=== PATIENT | female | born 1945 | race Caucasian/White ===

== ENCOUNTER 2018-05-05 22:10 | Emergency (ER) | payer MEDICARE, OTHER ==
--- NOTE | 2018-05-05 22:23 | EDM.PDOC ---
ED HPI GENERAL MEDICAL PROBLEM - General Chief Complaint: Respiratory Problem Stated Complaint: SHORT OF BREATH Time Seen by Provider: 05/05/18 22:20 - History of Present Illness INITIAL COMMENTS - FREE TEXT/NARRATIVE: HISTORY AND PHYSICAL: History of present illness: Patient is 72-year-old female with history of pulmonary cancer for which she had a left lower lobe lobectomy in October of this year followed by chemotherapy she had her port removed recently and was told that PET scan and all other diagnostics demonstrate no evidence of cancer. She presents today with a cough that she's had for 1 week and increasing shortness of breath she denies fever chills nausea vomiting or other complaints Review of systems: As per history of present illness and below otherwise all systems reviewed and negative. Past medical history: As per history of present illness and as reviewed below otherwise noncontributory. Surgical history: As per history of present illness and as reviewed below otherwise noncontributory. Social history: No reported history of drug or alcohol abuse. Family history: As per history of present illness and as reviewed below otherwise noncontributory. Physical exam: HEENT: Atraumatic, normocephalic, pupils reactive, negative for conjunctival pallor or scleral icterus, mucous membranes moist, throat clear, neck supple, nontender, trachea midline. Lungs: Slightly coarse diminished left base, breath sounds equal bilaterally, chest nontender. Heart: S1S2, regular, negative for clicks, rubs, or JVD. Abdomen: Soft, nondistended, nontender. Negative for masses or hepatosplenomegaly. Negative for costovertebral tenderness. Pelvis: Stable nontender. Genitourinary: Deferred. Rectal: Deferred. Extremities: Atraumatic, negative for cords or calf pain. Neurovascular unremarkable. Neuro: Awake, alert, oriented. Cranial nerves II through XII unremarkable. Cerebellum unremarkable. Motor and sensory unremarkable throughout. Exam nonfocal. Diagnostics: CBC CMP PT/INR ABG chest x-ray EKG troponin Therapeutics: IV O2 monitor albuterol ipratropium nebulizer Impression: #1 history of pulmonary cancer status post lobectomy #2 dyspnea Definitive disposition and diagnosis as appropriate pending reevaluation and review of above. - Related Data Allergies Allergy/AdvReac Type Severity Reaction Status Date / Time No Known Allergies Allergy Verified 05/05/18 22:34 Home Meds: Home Meds Aspirin 81 mg PO ONETIME 01/24/16 [History] ClonazePAM [KlonoPIN] 0.5 mg PO QID PRN 01/24/16 [History] Insulin Detemir [Levemir] 10 unit SQ DAILY 01/24/16 [History] Metoprolol Succinate [Toprol XL 100mg] 100 mg PO DAILY 01/24/16 [History] Omeprazole 20 mg PO DAILY 01/24/16 [History] Sertraline HCl [Zoloft] 100 mg PO DAILY 01/24/16 [History] Dulaglutide [Trulicity] 1.5 mg SQ ASDIRECTED 05/05/18 [History] Insulin Aspart [NovoLOG] 0 units SQ QID 05/05/18 [History] Zolpidem Tartrate [Ambien] 5 mg PO DAILY PRN 05/05/18 [History] Past Medical History HEENT History: Reports: Sinusitis Cardiovascular History: Reports: Hypertension Respiratory History: Reports: None, Other (See Below) Other Respiratory History: pneumonia Gastrointestinal History: Reports: GERD Genitourinary History: Reports: None F[employer]WORK[employer] GENERAL History: Reports: Neurological History: Reports: None Psychiatric History: Reports: None Endocrine/Metabolic History: Reports: Diabetes, Type II Hematologic History: Reports: None Immunologic History: Reports: None Oncologic (Cancer) History: Reports: Squamous Cell Carcinoma Dermatologic History: Reports: None - Infectious Disease History Infectious Disease History: Reports: Chicken Pox, Measles, Mumps - Past Surgical History Female Surgical History: Reports: D&C, Hysterectomy, Salpingo-Oophorectomy Musculoskeletal Surgical History: Reports: Arthroscopic Knee, Other (See Below) Social & Family History - Family History Family Medical History: Noncontributory ED ROS GENERAL - Review of Systems Review Of Systems: ROS reveals no pertinent complaints other than HPI. ED EXAM, GENERAL - Physical Exam Exam: See Below (See dictation) Course - Vital Signs Text/Narrative:: Patient is improved and has had an unremarkable emergency department course she continues with a mild headache we discussed admission and further diagnostic testing at this time patient declined she does request home nebulizer for albuterol which was suggested by her private doctor but is yet to be secured. Last Recorded V/S: Last Vital Signs Temp 37.4 C 05/05/18 22:13 Pulse 108 H 05/05/18 23:30 Resp 20 05/05/18 23:30 BP 104/64 05/05/18 23:30 Pulse Ox 94 L 05/05/18 23:30 - Orders/Labs/Meds Orders: Active Orders 24 hr Category Date Time Status EKG Documentation Completion [RC] STAT Care 05/05/18 22:21 Active RT Aerosol Therapy [RC] ASDIRECTED Care 05/05/18 22:24 Active Chest 1V Frontal [CR] Stat Exams 05/05/18 22:21 Taken Labs: Laboratory Tests 05/05/18 05/05/18 05/05/18 Range/Units 22:20 22:20 22:20 WBC 6.23 (4.0-11.0) K/uL RBC 3.73 L (4.30-5.90) M/uL Hgb 13.0 (12.0-16.0) g/dL Hct 36.7 (36.0-46.0) % MCV 98.4 H (80.0-98.0) fL MCH 34.9 H (27.0-32.0) pg MCHC 35.4 (31.0-37.0) g/dL RDW Std Deviation 42.9 (28.0-62.0) fl RDW Coeff of Onofre 12 (11.0-15.0) % Plt Count 176 (150-400) K/uL MPV 9.30 (7.40-12.00) fL Neut % (Auto) 72.9 (48.0-80.0) % Lymph % (Auto) 14.9 L (16.0-40.0) % Alfalfa % (Auto) 10.8 (0.0-15.0) % Eos % (Auto) 1.1 (0.0-7.0) % Baso % (Auto) 0.3 (0.0-1.5) % Neut # (Auto) 4.5 (1.4-5.7) K/uL Lymph # (Auto) 0.9 (0.6-2.4) K/uL Alfalfa # (Auto) 0.7 (0.0-0.8) K/uL Eos # (Auto) 0.1 (0.0-0.7) K/uL Baso # (Auto) 0.0 (0.0-0.1) K/uL Nucleated RBC % 0.0 /100WBC Nucleated RBCs # 0 K/uL INR ABG pH (7.35-7.45) ABG pCO2 (35-45) mmHG ABG pO2 (75-100) mmHG ABG HCO3 (22-26) mEq/L ABG Total CO2 ABG Base Excess (-2.0-2.0) Sodium 131 L (136-145) mmol/L Potassium 3.8 (3.5-5.1) mmol/L Chloride 96 L (98-107) mmol/L Carbon Dioxide 22.0 (21.0-32.0) mmol/L BUN 12 (7.0-18.0) mg/dL Creatinine 1.2 H (0.6-1.0) mg/dL Est Cr Clr Drug Dosing 38.69 mL/min Estimated GFR (MDRD) 44.3 ml/min Glucose 387 H (74-106) mg/dL Calcium 9.3 (8.5-10.1) mg/dL Total Bilirubin 0.3 (0.2-1.0) mg/dL AST 25 (15-37) IU/L ALT 29 (14-63) IU/L Alkaline Phosphatase 89 (46-116) U/L Troponin I < 0.050 (0.000-0.056) ng/mL B-Natriuretic Peptide 17 (<100) PG/ML Total Protein 7.6 (6.4-8.2) g/dL Albumin 3.1 L (3.4-5.0) g/dL Globulin 4.5 H (2.0-3.5) g/dL Albumin/Globulin Ratio 0.7 L (1.3-2.8) 05/05/18 05/05/18 Range/Units 22:20 23:05 WBC (4.0-11.0) K/uL RBC (4.30-5.90) M/uL Hgb (12.0-16.0) g/dL Hct (36.0-46.0) % MCV (80.0-98.0) fL MCH (27.0-32.0) pg MCHC (31.0-37.0) g/dL RDW Std Deviation (28.0-62.0) fl RDW Coeff of Onofre (11.0-15.0) % Plt Count (150-400) K/uL MPV (7.40-12.00) fL Neut % (Auto) (48.0-80.0) % Lymph % (Auto) (16.0-40.0) % Alfalfa % (Auto) (0.0-15.0) % Eos % (Auto) (0.0-7.0) % Baso % (Auto) (0.0-1.5) % Neut # (Auto) (1.4-5.7) K/uL Lymph # (Auto) (0.6-2.4) K/uL Alfalfa # (Auto) (0.0-0.8) K/uL Eos # (Auto) (0.0-0.7) K/uL Baso # (Auto) (0.0-0.1) K/uL Nucleated RBC % /100WBC Nucleated RBCs # K/uL INR 0.92 ABG pH 7.481 H (7.35-7.45) ABG pCO2 27 L (35-45) mmHG ABG pO2 69 L (75-100) mmHG ABG HCO3 21 L (22-26) mEq/L ABG Total CO2 18.5 ABG Base Excess -1.9 (-2.0-2.0) Sodium (136-145) mmol/L Potassium (3.5-5.1) mmol/L Chloride (98-107) mmol/L Carbon Dioxide (21.0-32.0) mmol/L BUN (7.0-18.0) mg/dL Creatinine (0.6-1.0) mg/dL Est Cr Clr Drug Dosing mL/min Estimated GFR (MDRD) ml/min Glucose (74-106) mg/dL Calcium (8.5-10.1) mg/dL Total Bilirubin (0.2-1.0) mg/dL AST (15-37) IU/L ALT (14-63) IU/L Alkaline Phosphatase (46-116) U/L Troponin I (0.000-0.056) ng/mL B-Natriuretic Peptide (<100) PG/ML Total Protein (6.4-8.2) g/dL Albumin (3.4-5.0) g/dL Globulin (2.0-3.5) g/dL Albumin/Globulin Ratio (1.3-2.8) Meds: Medications Discontinued Medications Generic Name Dose Route Start Last Admin Trade Name To PRN Reason Stop Dose Admin Acetaminophen 1,000 mg 05/05/18 23:18 05/05/18 23:25 Tylenol Extra Strength PO 05/05/18 23:19 1,000 mg ONETIME ONE Administration Hydrocodone Bitart/Acetaminophen 1 tab 05/05/18 23:34 05/05/18 23:43 [place] 325-5 Mg PO 05/05/18 23:35 1 tab ONETIME ONE Administration Albuterol/Ipratropium 3 ml 05/05/18 22:24 05/05/18 22:41 Duoneb 3.0-0.5 Mg/3 Ml NEB 05/05/18 22:25 3 ml ONETIME ONE Administration Insulin Human Regular 15 unit 05/06/18 23:55 Novolin R SUBCUT 05/05/18 23:59 ONETIME ONE Protocol Insulin Human Regular 15 unit 05/06/18 00:00 05/06/18 00:06 Novolin R SUBCUT 05/06/18 00:01 15 units ONETIME ONE Administration Protocol Ketorolac Tromethamine 30 mg 05/05/18 22:26 05/05/18 22:41 Toradol IVPUSH 05/05/18 22:27 30 mg ONETIME ONE Administration Departure - Departure Time of Disposition: 00:50 Disposition: Home, Self-Care 01 Condition: Good Clinical Impression: Dyspnea - Discharge Information Referrals: PCP,None [Primary Care Provider] - Forms: ED Department Discharge Additional Instructions: The following information is given to patients seen in the emergency department who are being discharged to home. This information is to outline your options for follow-up care. We provide all patients seen in our emergency department with a follow-up referral. The need for follow-up, as well as the timing and circumstances, are variable depending upon the specifics of your emergency department visit. If you don't have a primary care physician on staff, we will provide you with a referral. We always advise you to contact your personal physician following an emergency department visit to inform them of the circumstance of the visit and for follow-up with them and/or the need for any referrals to a consulting specialist. The emergency department will also refer you to a specialist when appropriate. This referral assures that you have the opportunity for followup care with a specialist. All of these measure are taken in an effort to provide you with optimal care, which includes your followup. Under all circumstances we always encourage you to contact your private physician who remains a resource for coordinating your care. When calling for followup care, please make the office aware that this follow-up is from your recent emergency room visit. If for any reason you are refused follow-up, please contact the [facility] emergency department at and asked to speak to the emergency department charge nurse. Albuterol as prescribed keep scheduled appointment tomorrow return as needed as discussed[] - My Orders Last 24 Hours: My Active Orders 05/05/18 22:21 EKG Documentation Completion [RC] STAT Chest 1V Frontal [CR] Stat 05/05/18 22:24 RT Aerosol Therapy [RC] ASDIRECTED - Assessment/Plan Last 24 Hours: My Active Orders 05/05/18 22:21 EKG Documentation Completion [RC] STAT Chest 1V Frontal [CR] Stat 05/05/18 22:24 RT Aerosol Therapy [RC] ASDIRECTED
[2018-05-05] MEDS ORDERED: Albuterol/Ipratropium 3.0-0.5 MG/3 ML Neb Soln NEB ONE (22:24)
[2018-05-05] MEDS ORDERED: Ketorolac 30 MG/ML SDV IVPUSH ONE (22:26)
[2018-05-05 22:52] LABS: CHLORIDE,CL 96 mmol/L (98-107); SODIUM,NA 131 mmol/L (136-145)
[2018-05-05] MEDS ORDERED: Acetaminophen 500 MG Tab PO ONE (23:18)
[2018-05-05] MEDS ORDERED: Acetaminophen/HYDROcodone 325-5 MG Tab PO ONE (23:34)
[2018-05-06 02:04] VITALS: BP 109/58
--- NOTE | 2018-05-06 13:14 | CR ---
EXAM DATE: 05/05/18 PATIENT'S AGE: 72 Patient: BIN VALDEZ Facility: [place], [place] Site . Site : [id number] Study: XRay Chest [id number]/10/2018 11:20:11 PM Ordering Physician: Jennifer Estrada Final Report: INDICATION: Shortness of breath TECHNIQUE: Chest radiograph 1 view COMPARISON: None FINDINGS: Moderate degradation of image quality noted due to body habitus. Mediastinum: The mediastinum is normal in appearance. Consolidation seen in the left lung base, obscuring the left cardiac border. Lungs: Mild perihilar edema is noted. No sign of pleural effusion seen. No pneumothorax is identified. Bones and soft tissue: Unremarkable for age. IMPRESSIONS: 1. Consolidation seen in the left lung base, obscuring the left cardiac border. Findings are suspicious for pneumonia or atelectasis. 2. Mild perihilar edema is noted. Dictated by Darrell Garcia MD @ 05/05/2018 11:23:33 PM Dictated by: Darrell Garcia MD @ 05/05/2018 23:23:39 (Electronic Signature) Report Signed by Proxy. TAYLA
[2018-05-06] MEDS ORDERED: Insulin Regular, Human 100 Units/ML 10 ML Vial SUBCUT ONE ×2 (23:55)
== END 2018-05-06 01:50 | disposition home or self-care (01) ==
LOC: MW.ED 22:10
DX: R06.00 Dyspnea, unspecified (principal); E11.9 Type 2 diabetes mellitus without complications; I10 Essential (primary) hypertension; K21.9 Gastro-esophageal reflux disease without esophagitis; Z85.118 Personal history of other malignant neoplasm of bronchus and lung; Z79.82 Long term (current) use of aspirin; Z79.4 Long term (current) use of insulin; Z79.899 Other long term (current) drug therapy
CPT/HCPCS: 36415; 36600; 71045; 80053; 82803; 83880; 84484; 85025; 85610; 93005; 94640; 99285; A9270; J1885; J1815-GY

== ENCOUNTER 2018-05-08 13:44 | Inpatient (IN) | payer MEDICARE, OTHER ==
[2018-05-08] MEDS ORDERED: Ketorolac 30 MG/ML SDV IVPUSH ONE (13:52)
--- NOTE | 2018-05-08 13:56 | EDM.PDOC ---
ED HPI GENERAL MEDICAL PROBLEM - General Chief Complaint: Back Pain or Injury Stated Complaint: BACK PAIN Time Seen by Provider: 05/08/18 13:48 Source of Information: Reports: Patient History Limitations: Reports: No Limitations - History of Present Illness INITIAL COMMENTS - FREE TEXT/NARRATIVE: HISTORY AND PHYSICAL: History of present illness: Patient is a 72-year-old female who presents to the emergency room with complaints of lumbar back pain after falling. She states she was sitting on the toilet when she stood up to wipe she felt herself falling backwards and hit her back on the toilet. She does remember eating her head but states "it was all in slow motion". Currently complains of lumbar back pain bilaterally without sciatica but describes it as a "muscle spasm". She denies any fever, chills, chest pain, shortness of breath or cough. Denies any abdominal pain, nausea, vomiting, diarrhea or constipation. Denies any dizziness, headache or change in vision. Review of systems: As per history of present illness and below otherwise all systems reviewed and negative. Past medical history: As per history of present illness and as reviewed below otherwise noncontributory. Surgical history: As per history of present illness and as reviewed below otherwise noncontributory. Social history: No reported history of drug or alcohol abuse. Family history: As per history of present illness and as reviewed below otherwise noncontributory. Physical exam: General: Developed and well-nourished 72-year-old female. Alert and oriented. Nontoxic appearing and in no acute distress. HEENT: Nontender to palpation, normocephalic, pupils equal and reactive bilaterally, negative for conjunctival pallor or scleral icterus, mucous membranes moist, throat clear, neck supple, nontender, trachea midline. No drooling or trismus noted. No meningeal signs Lungs: Clear to auscultation, breath sounds equal bilaterally, chest nontender. Heart: S1S2, regular rate and rhythm without overt murmur Abdomen: Soft, nondistended, nontender. Negative for masses or hepatosplenomegaly. Negative for costovertebral tenderness. Pelvis: Stable nontender. Genitourinary: Deferred. Rectal: Deferred. C-spine/Back: No pinpoint vertebral tenderness upon palpation. No crepitus, step -offs or obvious deformities. She denies any numbness or tingling to her distal extremities. No urinary or fecal incontinence. Skin: Intact, warm, dry. No lesions or rashes noted. Extremities: Atraumatic, negative for cords or calf pain. Neurovascular unremarkable. Neuro: Awake, alert, oriented. Cranial nerves II through XII unremarkable. Cerebellum unremarkable. Motor and sensory unremarkable throughout. Exam nonfocal. Notes: X-ray of the chest shows a mild left basilar infiltrate, it is noted that this has improved from previous x-ray on 05/05/2018. Degenerative changes are noted to the cervical spine without any acute findings Head CT shows no acute intracranial findings with mild to moderate small vessel ischemic changes. Lumbar spine x-ray shows no definitive acute abnormalities, generalized osteopenia and mild changes Patient was made aware of her labs and imaging findings. Patient is requesting a DuoNeb at this time as she states she normally has one in the morning and afternoon. She states that she has minimal to no pain relief with Toradol and Norflex. She states that she has had Newell in the past her chemotherapy treatments. She is requesting that I give her a tablet Newell at this time as she would like to ambulate in the room to see how she feels. I did offer her admission at this time. She is hesitant as she states that she may want to go home if her in has improved. I did inform her that the admission would be due to her syncope. She is aware. Patient was assisted to get up to ambulate in the room. She states her back pain is unresolved and she feels she is unable to take care of herself at home. She would like to stay overnight. I did consult Dr. Richardson on this patient and he is aware. He is agreeable to keeping this patient with telemetry. Diagnostics: CBC, CMP, troponin, EKG, one view chest, head CT, CT cervical spine, x-ray lumbar spine Therapeutics: IV fluid, Toradol, Zithromax, Morphine, zofran Impression: Syncope Back pain Left basilar infiltrate Plan: Observation admission Definitive disposition and diagnosis as appropriate pending reevaluation and review of above. Onset: Today Duration: Minutes: Location: Reports: Back Lower Back Pain Score (Numeric/FACES): 9 - Related Data Allergies Allergy/AdvReac Type Severity Reaction Status Date / Time No Known Allergies Allergy Verified 05/08/18 13:50 Home Meds: Home Meds Aspirin 81 mg PO ONETIME 01/24/16 [History] ClonazePAM [KlonoPIN] 0.5 mg PO QID PRN 01/24/16 [History] Insulin Detemir [Levemir] 10 unit SQ DAILY 01/24/16 [History] Metoprolol Succinate [Toprol XL 100mg] 100 mg PO DAILY 01/24/16 [History] Omeprazole 20 mg PO DAILY 01/24/16 [History] Sertraline HCl [Zoloft] 100 mg PO DAILY 01/24/16 [History] Dulaglutide [Trulicity] 1.5 mg SQ ASDIRECTED 05/05/18 [History] Insulin Aspart [NovoLOG] 0 units SQ QID 05/05/18 [History] Zolpidem Tartrate [Ambien] 5 mg PO DAILY PRN 05/05/18 [History] Cyclobenzaprine [Flexeril] 10 mg PO TID PRN 7 Days #21 tab 05/08/18 [Rx] Past Medical History HEENT History: Reports: Sinusitis Cardiovascular History: Reports: Hypertension Respiratory History: Reports: None, Other (See Below) Other Respiratory History: pneumonia Gastrointestinal History: Reports: GERD Genitourinary History: Reports: None BIT WELDER History: Reports: Musculoskeletal History: Reports: None Neurological History: Reports: None Psychiatric History: Reports: None Endocrine/Metabolic History: Reports: Diabetes, Type II Hematologic History: Reports: None Immunologic History: Reports: None Oncologic (Cancer) History: Reports: Squamous Cell Carcinoma Dermatologic History: Reports: None - Infectious Disease History Infectious Disease History: Reports: Chicken Pox, Measles, Mumps - Past Surgical History Female Surgical History: Reports: D&C, Hysterectomy, Salpingo-Oophorectomy Musculoskeletal Surgical History: Reports: Arthroscopic Knee, Other (See Below) Social & Family History - Family History Family Medical History: Noncontributory - Caffeine Use Caffeine Use: Reports: Coffee ED ROS GENERAL - Review of Systems Review Of Systems: ROS reveals no pertinent complaints other than HPI. ED EXAM,LOWER BACK PAIN/INJURY - Physical Exam Exam: See Below (See dictation) Course - Vital Signs Last Recorded V/S: Last Vital Signs Temp 97.8 F 05/08/18 13:53 Pulse 89 05/08/18 13:53 Resp 14 05/08/18 13:53 BP 132/89 07/13/18 13:53 Pulse Ox 93 L 05/08/18 13:53 - Orders/Labs/Meds Orders: Active Orders 24 hr Category Date Time Status EKG Documentation Completion [RC] STAT Care 05/08/18 13:52 Active RT Aerosol Therapy [RC] ASDIRECTED Care 05/08/18 15:51 Active Sodium Chloride 0.9% [Normal Saline] 500 ml Med 05/08/18 14:00 Active IV STAT Medication Orders Sodium Chloride (Normal Saline) 500 mls @ 999 mls/hr IV STAT OLIVIA Last Admin: 05/08/18 14:09 Dose: 999 mls/hr Labs: Laboratory Tests 05/08/18 05/08/18 Range/Units 14:05 14:05 WBC 8.14 (4.0-11.0) K/uL RBC 3.66 L (4.30-5.90) M/uL Hgb 12.5 (12.0-16.0) g/dL Hct 35.6 L (36.0-46.0) % MCV 97.3 (80.0-98.0) fL MCH 34.2 H (27.0-32.0) pg MCHC 35.1 (31.0-37.0) g/dL RDW Std Deviation 43.1 (28.0-62.0) fl RDW Coeff of Onofre 12 (11.0-15.0) % Plt Count 217 (150-400) K/uL MPV 9.10 (7.40-12.00) fL Neut % (Auto) 79.8 (48.0-80.0) % Lymph % (Auto) 10.4 L (16.0-40.0) % [place] % (Auto) 8.2 (0.0-15.0) % Eos % (Auto) 1.4 (0.0-7.0) % Baso % (Auto) 0.2 (0.0-1.5) % Neut # (Auto) 6.5 H (1.4-5.7) K/uL Lymph # (Auto) 0.9 (0.6-2.4) K/uL [place] # (Auto) 0.7 (0.0-0.8) K/uL Eos # (Auto) 0.1 (0.0-0.7) K/uL Baso # (Auto) 0.0 (0.0-0.1) K/uL Nucleated RBC % 0.0 /100WBC Nucleated RBCs # 0 K/uL Sodium 132 L (136-145) mmol/L Potassium 4.1 (3.5-5.1) mmol/L Chloride 97 L (98-107) mmol/L Carbon Dioxide 24.5 (21.0-32.0) mmol/L BUN 17 (7.0-18.0) mg/dL Creatinine 1.1 H (0.6-1.0) mg/dL Est Cr Clr Drug Dosing 43.91 mL/min Estimated GFR (MDRD) 49.0 ml/min Glucose 289 H (74-106) mg/dL Calcium 10.0 (8.5-10.1) mg/dL Total Bilirubin 0.2 (0.2-1.0) mg/dL AST 42 H (15-37) IU/L ALT 37 (14-63) IU/L Alkaline Phosphatase 85 (46-116) U/L Troponin I < 0.050 (0.000-0.056) ng/mL Total Protein 7.7 (6.4-8.2) g/dL Albumin 3.0 L (3.4-5.0) g/dL Globulin 4.7 H (2.0-3.5) g/dL Albumin/Globulin Ratio 0.6 L (1.3-2.8) Meds: Medications Generic Name Dose Route Start Last Admin Trade Name Freq PRN Reason Stop Dose Admin Sodium Chloride 500 mls @ 999 mls/hr 05/08/18 14:00 05/08/18 14:09 Normal Saline IV 999 mls/hr STAT OLIVIA Administration Discontinued Medications Generic Name Dose Route Start Last Admin Trade Name Freq PRN Reason Stop Dose Admin Hydrocodone Bitart/Acetaminophen 1 tab 05/08/18 15:51 05/08/18 16:28 Newell 325-5 Mg PO 05/08/18 15:52 1 tab ONETIME ONE Administration Albuterol/Ipratropium 3 ml 05/08/18 15:51 05/08/18 16:15 Duoneb 3.0-0.5 Mg/3 Ml NEB 05/08/18 15:52 3 ml ONETIME ONE Administration Ketorolac Tromethamine 30 mg 05/08/18 13:52 05/08/18 14:10 Toradol IVPUSH 05/08/18 13:53 30 mg ONETIME ONE Administration Orphenadrine Citrate 60 mg 05/08/18 14:31 05/08/18 14:36 Norflex IM 05/08/18 14:32 60 mg NOW STA Administration Departure - Departure Time of Disposition: 17:21 Disposition: Refer to Observation Clinical Impression: Infiltrate of lung present on chest x-ray Syncope Qualifiers: Syncope type: unspecified Qualified Code(s): R55 - Syncope and collapse Back pain Qualifiers: Back pain location: thoracic back pain Chronicity: acute Back pain laterality: midline Qualified Code(s): M54.6 - Pain in thoracic spine - Discharge Information Prescriptions: Cyclobenzaprine [Flexeril] 10 mg PO TID PRN 7 Days #21 tab PRN Reason: Muscle Spasm Instructions: Syncope, [id number] Referrals: PCP,None [Primary Care Provider] - Forms: ED Department Discharge Additional Instructions: The following information is given to patients seen in the emergency department who are being discharged to home. This information is to outline your options for follow-up care. We provide all patients seen in our emergency department with a follow-up referral. The need for follow-up, as well as the timing and circumstances, are variable depending upon the specifics of your emergency department visit. If you don't have a primary care physician on staff, we will provide you with a referral. We always advise you to contact your personal physician following an emergency department visit to inform them of the circumstance of the visit and for follow-up with them and/or the need for any referrals to a consulting specialist. The emergency department will also refer you to a specialist when appropriate. This referral assures that you have the opportunity for follow-up care with a specialist. All of these measure are taken in an effort to provide you with optimal care, which includes your follow-up. Under all circumstances we always encourage you to contact your private physician who remains a resource for coordinating your care. When calling for follow-up care, please make the office aware that this follow-up is from your recent emergency room visit. If for any reason you are refused follow-up, please contact the [facility] Emergency Department at and asked to speak to the emergency department charge nurse. [facility] [address] [place] [phone] 1. Please take the medications as directed. As we discussed, the Newell will cause drowsiness so do not take this while driving, needing to be functioning outside of the house, or with other medications that cause drowsiness. You may use Ibuprofen for breakthrough pain. 2. Follow up with your primary care provider in the next 1-2 days. Return to the ED as needed and as discussed. - My Orders Last 24 Hours: My Active Orders 05/08/18 13:52 EKG Documentation Completion [RC] STAT 05/08/18 14:00 Sodium Chloride 0.9% [Normal Saline] 500 ml IV STAT 05/08/18 15:51 RT Aerosol Therapy [RC] ASDIRECTED - Assessment/Plan Last 24 Hours: My Active Orders 05/08/18 13:52 EKG Documentation Completion [RC] STAT 05/08/18 14:00 Sodium Chloride 0.9% [Normal Saline] 500 ml IV STAT 05/08/18 15:51 RT Aerosol Therapy [RC] ASDIRECTED
[2018-05-08] MEDS ORDERED: Sodium Chloride 0.9% 500 ML IV SCH (14:00)
[2018-05-08 14:33] LABS: CHLORIDE,CL 97 mmol/L (98-107); SODIUM,NA 132 mmol/L (136-145)
--- NOTE | 2018-05-08 15:04 | CT ---
EXAMINATION: Non contrast CT head. Coronal and sagittal reformats. HISTORY: Pain FINDINGS: No evidence of intra or extra axial hemorrhage, mass, midline shift, hydrocephalus or edema. Mild to moderate periventricular and subcortical white matter hypodensities are noted. No hypoattenuation changes in the major vascular territories to suggest acute infarct. No abnormal intracranial calcifications are detected. No evidence of substantial vascular calcificat ions. Paranasal sinuses and mastoid air cells are well aerated without substantial findings. The orbits an d globes are symmetric. Pituitary fossa appears unremarkable. Calvarium is intact. No evidence of skull fracture. IMPRESSION: 1. No acute intracranial findings. 2. [id number] small vessel ischemic changes.
--- NOTE | 2018-05-08 15:09 | CT ---
EXAMINATION: CT cervical spine HISTORY: Pain COMPARISON: None TECHNIQUE: Axial CT images obtained through the cervical spine without contrast. Coronal and sagittal reconstructions obtained. FINDINGS: The cervical spinal alignment is grossly unremarkable. Vertebral body heights appear maintained. Bone mineralization appears normal. Mild degenerative disc disease noted within the lower cervical spine. No fracture or acute osseous abnormality is noted. The prevertebral soft tissues appear normal. Scar ring is noted within the left lung apex. IMPRESSION: 1. Degenerative changes noted within the cervical spine without acute findings.
--- NOTE | 2018-05-08 15:43 | CR ---
EXAMINATION: Lumbar spine HISTORY: Pain COMPARISON: CT dated 01/24/2016 TECHNIQUE: AP and lateral views obtained FINDINGS: The lumbar spinal alignment appears normal. There is a moderate wedge deformity at L2, unch anged from the prior CT. There is moderate generalized osteopenia. No definitive fracture or acute os seous abnormality. Mild facet hypertrophy within the lower lumbar spine and small bowel osteophytes a re noted. Mild vascular calcifications. IMPRESSION: 1. No definitive acute osseous abnormality. 2. Generalized osteopenia. 3. Old wedge deformity of the L2 vertebral body. 4. Otherwise mild degenerative changes within the lumbar spine.
--- NOTE | 2018-05-08 15:44 | CR ---
EXAMINATION: Portable chest radiograph. HISTORY: Fall. FINDINGS: The trachea is midline. The heart is normal in size for technique. Mild left basilar infiltrate. No p leural effusion or pneumothorax. Otherwise minimal generalized interstitial prominence. IMPRESSION: Mild left basilar infiltrate, however improved in comparison to 05/05/2018.
[2018-05-08] MEDS ORDERED: Acetaminophen/HYDROcodone 325-5 MG Tab PO ONE (15:51)
[2018-05-08] MEDS ORDERED: Albuterol/Ipratropium 3.0-0.5 MG/3 ML Neb Soln NEB ONE (15:51)
[2018-05-08] MEDS ORDERED: Azithromycin 250 MG Tab PO ONE (17:22)
[2018-05-08] MEDS ORDERED: Morphine 2 MG/ML Syringe IVPUSH ONE (17:22)
[2018-05-08] MEDS ORDERED: Ondansetron 4 MG/2 ML SDV IVPUSH ONE (17:22)
[2018-05-08] MEDS ORDERED: Acetaminophen 325 MG Tab PO PRN (20:30)
--- NOTE | 2018-05-08 20:36 | PCM.HP ---
H&P History of Present Illness - General Date of Service: 05/08/18 Admit Problem/Dx: Admission Diagnosis/Problem Admission Diagnosis/Problem Syncope - History of Present Illness Initial Comments - Free Text/Narative: 72 yo female who presented following a syncopal event. Patient remembers getting up off the toilet at home but then does not rememeber falling. She woke up ten feet from the bathroom on the floor. She reported feeling like things were in slow motion before she passed out. When she woke up she reported back pain that was severe enough that she had difficulty standing. CT head, spine and x-ray lumbar chest were normal. Lower Back Pain Score (Numeric/FACES): 9 - Related Data Allergies/Adverse Reactions: Allergies Allergy/AdvReac Type Severity Reaction Status Date / Time No Known Allergies Allergy Verified 05/08/18 13:50 Home Medications: Home Meds Aspirin 81 mg PO ONETIME 01/24/16 [History] ClonazePAM [KlonoPIN] 0.5 mg PO QID PRN 01/24/16 [History] Insulin Detemir [Levemir] 10 unit SQ DAILY 01/24/16 [History] Metoprolol Succinate [Toprol XL 100mg] 100 mg PO DAILY 01/24/16 [History] Omeprazole 20 mg PO DAILY 01/24/16 [History] Sertraline HCl [Zoloft] 100 mg PO DAILY 01/24/16 [History] Dulaglutide [Trulicity] 1.5 mg SQ ASDIRECTED 05/05/18 [History] Zolpidem Tartrate [Ambien] 5 mg PO DAILY PRN 05/05/18 [History] Cyclobenzaprine [Flexeril] 10 mg PO TID PRN 7 Days #21 tab 05/08/18 [Rx] Insulin Regular, Human [NovoLIN R] 0 unit SUBCUT TID 05/09/18 [History] Past Medical History HEENT History: Reports: Sinusitis Cardiovascular History: Reports: Hypertension Respiratory History: Reports: None, Other (See Below) Other Respiratory History: pneumonia Gastrointestinal History: Reports: GERD Genitourinary History: Reports: None [employer]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: Musculoskeletal History: Reports: None Neurological History: Reports: None Psychiatric History: Reports: None Endocrine/Metabolic History: Reports: Diabetes, Type II Hematologic History: Reports: None Immunologic History: Reports: None Oncologic (Cancer) History: Reports: Squamous Cell Carcinoma Dermatologic History: Reports: None - Infectious Disease History Infectious Disease History: Reports: Chicken Pox, Measles, Mumps - Past Surgical History Female Surgical History: Reports: D&C, Hysterectomy, Salpingo-Oophorectomy Musculoskeletal Surgical History: Reports: Arthroscopic Knee, Other (See Below) Social & Family History - Family History Family Medical History: Noncontributory - Tobacco Use Smoking Status *Q: Former Smoker Used Tobacco, but Quit: Yes Month/Year Tobacco Last Used: 08/27/2017 - Caffeine Use Caffeine Use: Reports: Coffee - Recreational Drug Use Recreational Drug Use: No H&P Review of Systems - Review of Systems: Review Of Systems: ROS reveals no pertinent complaints other than HPI. Exam - Exam Exam: See Below - Vital Signs Vital Signs: Last Vital Signs Temp 36.9 C 05/08/18 18:30 Pulse 88 05/08/18 18:30 Resp 18 05/08/18 18:30 BP 119/78 05/08/18 18:30 Pulse Ox 92 L 05/08/18 18:30 Weight: 82.1 kg - Exam General: Alert, Oriented HEENT: Mucosa Moist & [place] Neck: Supple, Trachea Midline Lungs: Clear to Auscultation, Normal Respiratory Effort Cardiovascular: Regular Rate, Regular Rhythm GI/Abdominal Exam: Normal Bowel Sounds, Soft, Non-Tender, No Organomegaly Back Exam: Paraspinal Tenderness Extremities: Normal Range of Motion, Non-Tender Skin: Warm, Dry, Intact Neurological: Cranial Nerves Intact. No: Focal Deficit - Patient Data Lab Results Last 24 hrs: Laboratory Results - last 24 hr 05/08/18 05/08/18 Range/Units 14:05 14:05 WBC 8.14 (4.0-11.0) K/uL RBC 3.66 L (4.30-5.90) M/uL Hgb 12.5 (12.0-16.0) g/dL Hct 35.6 L (36.0-46.0) % MCV 97.3 (80.0-98.0) fL MCH 34.2 H (27.0-32.0) pg MCHC 35.1 (31.0-37.0) g/dL RDW Std Deviation 43.1 (28.0-62.0) fl RDW Coeff of Onofre 12 (11.0-15.0) % Plt Count 217 (150-400) K/uL MPV 9.10 (7.40-12.00) fL Neut % (Auto) 79.8 (48.0-80.0) % Lymph % (Auto) 10.4 L (16.0-40.0) % [place] % (Auto) 8.2 (0.0-15.0) % Eos % (Auto) 1.4 (0.0-7.0) % Baso % (Auto) 0.2 (0.0-1.5) % Neut # (Auto) 6.5 H (1.4-5.7) K/uL Lymph # (Auto) 0.9 (0.6-2.4) K/uL [place] # (Auto) 0.7 (0.0-0.8) K/uL Eos # (Auto) 0.1 (0.0-0.7) K/uL Baso # (Auto) 0.0 (0.0-0.1) K/uL Nucleated RBC % 0.0 /100WBC Nucleated RBCs # 0 K/uL Sodium 132 L (136-145) mmol/L Potassium 4.1 (3.5-5.1) mmol/L Chloride 97 L (98-107) mmol/L Carbon Dioxide 24.5 (21.0-32.0) mmol/L BUN 17 (7.0-18.0) mg/dL Creatinine 1.1 H (0.6-1.0) mg/dL Est Cr Clr Drug Dosing 43.91 mL/min Estimated GFR (MDRD) 49.0 ml/min Glucose 289 H (74-106) mg/dL Calcium 10.0 (8.5-10.1) mg/dL Total Bilirubin 0.2 (0.2-1.0) mg/dL AST 42 H (15-37) IU/L ALT 37 (14-63) IU/L Alkaline Phosphatase 85 (46-116) U/L Troponin I < 0.050 (0.000-0.056) ng/mL Total Protein 7.7 (6.4-8.2) g/dL Albumin 3.0 L (3.4-5.0) g/dL Globulin 4.7 H (2.0-3.5) g/dL Albumin/Globulin Ratio 0.6 L (1.3-2.8) Result Diagrams: 05/09/18 05:54 05/09/18 05:54 Problem List Initiated/Reviewed/Updated: Yes Orders Last 24hrs: Active Orders 24 hr Category Date Time Status Patient Status [ADT] Stat ADT 05/08/18 17:20 Active EKG Documentation Completion [RC] STAT Care 05/08/18 13:52 Active Oxygen Therapy [RC] PRN Care 05/08/18 20:30 Ordered RT Aerosol Therapy [RC] ASDIRECTED Care 05/08/18 15:51 Active RT Aerosol Therapy [RC] ASDIRECTED Care 05/08/18 20:31 Ordered Telemetry Monitoring [Cardiac Monitoring] [RC] Q8H Care 05/08/18 18:16 Active Up ad [place]helia [RC] ASDIRECTED Care 05/08/18 20:30 Ordered VTE/DVT Education [RC] PER UNIT ROUTINE Care 05/08/18 20:30 Ordered Vital Signs [RC] Q4H Care 05/08/18 20:30 Ordered PT Evaluation and Treatment [CONS] Routine Cons 05/08/18 20:30 Ordered [place] [employer] Diet [DIET] Diet 05/08/18 Breakfast Ordered BASIC METABOLIC PANEL,BMP [CHEM] AM Lab 05/09/18 05:11 Ordered CBC WITH AUTO DIFF [HEME] AM Lab 05/09/18 05:11 Ordered Acetaminophen [Tylenol] Med 05/08/18 20:30 Ordered 650 mg PO Q4H PRN Albuterol/Ipratropium [DuoNeb 3.0-0.5 MG/3 ML] Med 05/09/18 00:00 Ordered 3 ml NEB Q6HRRT Dulaglutide [Trulicity] Med 05/08/18 20:45 Ordered 1.5 mg SQ ASDIRECTED Ibuprofen [Motrin] Med 05/08/18 20:30 Ordered 400 mg PO Q6H PRN Insulin Detemir [Levemir] Med 05/09/18 09:00 Ordered 10 unit SUBCUT DAILY Metoprolol Succinate [Toprol XL] Med 05/09/18 09:00 Ordered 100 mg PO DAILY Morphine Med 05/08/18 20:27 Ordered 2 mg IVPUSH Q3H PRN Omeprazole Med 05/09/18 09:00 Ordered 20 mg PO DAILY Sertraline [Zoloft] Med 05/09/18 09:00 Ordered 100 mg PO DAILY Sodium Chloride 0.9% [Normal Saline] 500 ml Med 05/08/18 14:00 Active IV STAT oxyCODONE Med 05/08/18 20:30 Ordered 5 mg PO Q4H PRN Sequential Compression Device [OM.PC] Per Unit Routine Oth 05/08/18 20:30 Ordered Resuscitation Status Routine Resus Stat 05/08/18 20:30 Ordered Medication Orders Acetaminophen (Tylenol) 650 mg PO Q4H PRN PRN Reason: Pain (Mild 1-3)/fever Albuterol/Ipratropium (Duoneb 3.0-0.5 Mg/3 Ml) 3 ml NEB Q6HRRT OLIVIA Sodium Chloride (Normal Saline) 500 mls @ 999 mls/hr IV STAT OLIVIA Last Admin: 05/08/18 14:09 Dose: 999 mls/hr Ibuprofen (Motrin) 400 mg PO Q6H PRN PRN Reason: Pain (mild 1-3) Morphine Sulfate (Morphine) 2 mg IVPUSH Q3H PRN PRN Reason: Pain Oxycodone HCl (Oxycodone) 5 mg PO Q4H PRN PRN Reason: Pain (moderate 4-6) Assessment/Plan Comment:: 72 yo female admitted with syncope and acute back pain. We will monitor overnight on telemetry, will consult PT
[2018-05-08] MEDS: Morphine 2 MG/ML Syringe IVPUSH PRN (21:07)
[2018-05-08] MEDS: Metoprolol Succinate 100 MG Tab.ER PO SCH (21:13)
[2018-05-08] MEDS: Cyclobenzaprine 5 MG Tab PO PRN (21:40)
[2018-05-08] MEDS: Insulin Detemir 100 Units/ML 3 ML Pen SUBCUT SCH (21:41)
[2018-05-09] MEDS: Albuterol/Ipratropium 3.0-0.5 MG/3 ML Neb Soln NEB SCH ×5 (00:43→23:48)
[2018-05-09] MEDS: oxyCODONE 5 MG Tab PO PRN ×5 (00:47→20:12)
[2018-05-09] MEDS: Morphine 2 MG/ML Syringe IVPUSH PRN ×4 (02:02→22:55)
[2018-05-09] MEDS: Omeprazole 20 MG Cap.CR PO SCH (06:40)
[2018-05-09] MEDS: Insulin Regular, Human 100 Units/ML 10 ML Vial SUBCUT SCH ×3 (06:52→17:31)
[2018-05-09] MEDS ORDERED: Insulin Regular, Human 100 Units/ML 10 ML Vial SUBCUT SCH (07:30)
[2018-05-09] MEDS: Cyclobenzaprine 5 MG Tab PO PRN ×2 (07:57→20:14)
[2018-05-09] MEDS: Sertraline 100 MG Tab PO SCH (08:30)
[2018-05-09] MEDS ORDERED: Metoprolol Succinate 100 MG Tab.ER PO SCH (09:00)
[2018-05-09] MEDS ORDERED: Insulin Detemir 100 Units/ML 3 ML Pen SUBCUT SCH (09:00)
--- NOTE | 2018-05-09 10:19 | PCM.PN ---
- General Info Date of Service: 05/10/18 - Review of Systems Systems Review Comment:: reports back pain slightly better, was able to walk with bathroom - Patient Data Vitals - Most Recent: Last Vital Signs Temp 37.2 C 05/09/18 07:47 Pulse 96 05/09/18 07:47 Resp 18 05/09/18 07:47 BP 141/72 H 05/09/18 07:47 Pulse Ox 93 L 05/09/18 07:47 Weight - Most Recent: 82.1 kg I&O - Last 24 Hours: Intake & Output 05/08/18 05/09/18 05/09/18 22:59 06:59 14:59 Intake Total 800 Output Total 450 Balance 350 Lab Results Last 24 Hours: Laboratory Results - last 24 hr 05/08/18 05/08/18 05/08/18 Range/Units 14:05 14:05 21:10 WBC 8.14 (4.0-11.0) K/uL RBC 3.66 L (4.30-5.90) M/uL Hgb 12.5 (12.0-16.0) g/dL Hct 35.6 L (36.0-46.0) % MCV 97.3 (80.0-98.0) fL MCH 34.2 H (27.0-32.0) pg MCHC 35.1 (31.0-37.0) g/dL RDW Std Deviation 43.1 (28.0-62.0) fl RDW Coeff of Onofre 12 (11.0-15.0) % Plt Count 217 (150-400) K/uL MPV 9.10 (7.40-12.00) fL Neut % (Auto) 79.8 (48.0-80.0) % Lymph % (Auto) 10.4 L (16.0-40.0) % Drew % (Auto) 8.2 (0.0-15.0) % Eos % (Auto) 1.4 (0.0-7.0) % Baso % (Auto) 0.2 (0.0-1.5) % Neut # (Auto) 6.5 H (1.4-5.7) K/uL Lymph # (Auto) 0.9 (0.6-2.4) K/uL Drew # (Auto) 0.7 (0.0-0.8) K/uL Eos # (Auto) 0.1 (0.0-0.7) K/uL Baso # (Auto) 0.0 (0.0-0.1) K/uL Nucleated RBC % 0.0 /100WBC Nucleated RBCs # 0 K/uL Sodium 132 L (136-145) mmol/L Potassium 4.1 (3.5-5.1) mmol/L Chloride 97 L (98-107) mmol/L Carbon Dioxide 24.5 (21.0-32.0) mmol/L BUN 17 (7.0-18.0) mg/dL Creatinine 1.1 H (0.6-1.0) mg/dL Est Cr Clr Drug Dosing 43.91 mL/min Estimated GFR (MDRD) 49.0 ml/min Glucose 289 H (74-106) mg/dL POC Glucose 279 H (60-110) mg/dL Calcium 10.0 (8.5-10.1) mg/dL Total Bilirubin 0.2 (0.2-1.0) mg/dL AST 42 H (15-37) IU/L ALT 37 (14-63) IU/L Alkaline Phosphatase 85 (46-116) U/L Troponin I < 0.050 (0.000-0.056) ng/mL Total Protein 7.7 (6.4-8.2) g/dL Albumin 3.0 L (3.4-5.0) g/dL Globulin 4.7 H (2.0-3.5) g/dL Albumin/Globulin Ratio 0.6 L (1.3-2.8) 05/09/18 05/09/18 05/09/18 Range/Units 05:54 05:54 06:20 WBC 7.15 (4.0-11.0) K/uL RBC 3.40 L (4.30-5.90) M/uL Hgb 11.8 L (12.0-16.0) g/dL Hct 33.2 L (36.0-46.0) % MCV 97.6 (80.0-98.0) fL MCH 34.7 H (27.0-32.0) pg MCHC 35.5 (31.0-37.0) g/dL RDW Std Deviation 42.9 (28.0-62.0) fl RDW Coeff of Onofre 12 (11.0-15.0) % Plt Count 214 (150-400) K/uL MPV 9.20 (7.40-12.00) fL Neut % (Auto) 75.2 (48.0-80.0) % Lymph % (Auto) 13.6 L (16.0-40.0) % Drew % (Auto) 8.1 (0.0-15.0) % Eos % (Auto) 2.5 (0.0-7.0) % Baso % (Auto) 0.6 (0.0-1.5) % Neut # (Auto) 5.4 (1.4-5.7) K/uL Lymph # (Auto) 1.0 (0.6-2.4) K/uL Drew # (Auto) 0.6 (0.0-0.8) K/uL Eos # (Auto) 0.2 (0.0-0.7) K/uL Baso # (Auto) 0.0 (0.0-0.1) K/uL Nucleated RBC % 0.0 /100WBC Nucleated RBCs # 0 K/uL Sodium 130 L (136-145) mmol/L Potassium 4.0 (3.5-5.1) mmol/L Chloride 96 L (98-107) mmol/L Carbon Dioxide 24.5 (21.0-32.0) mmol/L BUN 18 (7.0-18.0) mg/dL Creatinine 1.2 H (0.6-1.0) mg/dL Est Cr Clr Drug Dosing 38.69 mL/min Estimated GFR (MDRD) 44.3 ml/min Glucose 198 H (74-106) mg/dL POC Glucose 193 H (60-110) mg/dL Calcium 8.9 (8.5-10.1) mg/dL Total Bilirubin (0.2-1.0) mg/dL AST (15-37) IU/L ALT (14-63) IU/L Alkaline Phosphatase (46-116) U/L Troponin I (0.000-0.056) ng/mL Total Protein (6.4-8.2) g/dL Albumin (3.4-5.0) g/dL Globulin (2.0-3.5) g/dL Albumin/Globulin Ratio (1.3-2.8) Med Orders - Current: Current Medications Acetaminophen (Tylenol) 650 mg PO Q4H PRN PRN Reason: Pain (Mild 1-3)/fever Albuterol/Ipratropium (Duoneb 3.0-0.5 Mg/3 Ml) 3 ml NEB Q6HRRT [facility] Last Admin: 05/09/18 08:40 Dose: 3 ml Cyclobenzaprine HCl (Flexeril) 5 mg PO TID PRN PRN Reason: Muscle Spasm Last Admin: 05/09/18 07:57 Dose: 5 mg Sodium Chloride (Normal Saline) 500 mls @ 999 mls/hr IV STAT [facility] Last Admin: 05/08/18 14:09 Dose: 999 mls/hr Ibuprofen (Motrin) 400 mg PO Q6H PRN PRN Reason: Pain (mild 1-3) Insulin Detemir (Levemir) 10 unit SUBCUT BEDTIME [facility] Last Admin: 05/08/18 21:41 Dose: 10 units Insulin Human Regular (Novolin R) 0 unit SUBCUT TIDAC [facility] Last Admin: 05/09/18 06:52 Dose: Not Given Metoprolol Succinate (Toprol Xl) 100 mg PO BEDTIME [facility] Last Admin: 05/08/18 21:13 Dose: 100 mg Morphine Sulfate (Morphine) 2 mg IVPUSH Q3H PRN PRN Reason: Pain Last Admin: 05/09/18 05:58 Dose: 2 mg Non-Formulary Medication (Dulaglutide [Trulicity]) 1.5 mg SQ ASDIRECTED [facility] Omeprazole (Omeprazole) 20 mg PO ACBRK [facility] Last Admin: 05/09/18 06:40 Dose: 20 mg Oxycodone HCl (Oxycodone) 5 mg PO Q4H PRN PRN Reason: Pain (moderate 4-6) Last Admin: 05/09/18 09:38 Dose: 5 mg Sertraline HCl (Zoloft) 100 mg PO DAILY [facility] Last Admin: 05/09/18 08:30 Dose: 100 mg Discontinued Medications Hydrocodone Bitart/Acetaminophen ([place] 325-5 Mg) 1 tab PO ONETIME ONE Stop: 05/08/18 15:52 Last Admin: 05/08/18 16:28 Dose: 1 tab Albuterol/Ipratropium (Duoneb 3.0-0.5 Mg/3 Ml) 3 ml NEB ONETIME ONE Stop: 05/08/18 15:52 Last Admin: 05/08/18 16:15 Dose: 3 ml Azithromycin (Zithromax) 500 mg PO ONETIME ONE Stop: 05/08/18 17:23 Last Admin: 05/08/18 17:54 Dose: 500 mg Insulin Detemir (Levemir) 10 unit SUBCUT DAILY [facility] Insulin Human Regular (Novolin R) 0 unit SUBCUT TID [facility]; Protocol Ketorolac Tromethamine (Toradol) 30 mg IVPUSH ONETIME ONE Stop: 05/08/18 13:53 Last Admin: 05/08/18 14:10 Dose: 30 mg Metoprolol Succinate (Toprol Xl) 100 mg PO DAILY [facility] Morphine Sulfate (Morphine) 2 mg IVPUSH ONETIME ONE Stop: 05/08/18 17:23 Last Admin: 05/08/18 17:59 Dose: 2 mg Ondansetron HCl (Zofran) 4 mg IVPUSH ONETIME ONE Stop: 05/08/18 17:23 Last Admin: 05/08/18 17:56 Dose: 4 mg Orphenadrine Citrate (Norflex) 60 mg IM NOW STA Stop: 05/08/18 14:32 Last Admin: 05/08/18 14:36 Dose: 60 mg - Exam General: Alert, Oriented Neck: Supple Lungs: Clear to Auscultation, Normal Respiratory Effort Cardiovascular: Regular Rate, Regular Rhythm GI/Abdominal Exam: Soft, Non-Tender Extremities: No Pedal Edema Skin: Warm Neurological: No New Focal Deficit - Problem List Review Problem List Initiated/Reviewed/Updated: Yes - My Orders Last 24 Hours: My Active Orders 05/08/18 18:16 Telemetry Monitoring [Cardiac Monitoring] [RC] Q8H 05/08/18 20:27 Morphine 2 mg IVPUSH Q3H PRN 05/08/18 20:30 Oxygen Therapy [RC] PRN Up ad Nohelia [RC] ASDIRECTED VTE/DVT Education [RC] PER UNIT ROUTINE Vital Signs [RC] Q4H PT Evaluation and Treatment [CONS] Routine Acetaminophen [Tylenol] 650 mg PO Q4H PRN Ibuprofen [Motrin] 400 mg PO Q6H PRN oxyCODONE 5 mg PO Q4H PRN Sequential Compression Device [OM.PC] Per Unit Routine Resuscitation Status Routine 05/08/18 20:31 RT Aerosol Therapy [RC] ASDIRECTED 05/08/18 20:36 Cyclobenzaprine [Flexeril] 5 mg PO TID PRN 05/08/18 20:45 Dulaglutide [Trulicity] 1.5 mg SQ ASDIRECTED 05/08/18 21:00 Insulin Detemir [Levemir] 10 unit SUBCUT BEDTIME Metoprolol Succinate [Toprol XL] 100 mg PO BEDTIME 05/09/18 00:00 Albuterol/Ipratropium [DuoNeb 3.0-0.5 MG/3 ML] 3 ml NEB Q6HRRT 05/09/18 07:30 Accu Check [Blood Glucose Check, Bedside] [RC] QIDACANDBED Insulin Regular, Human [NovoLIN R] See Dose Instructions SUBCUT TIDAC Omeprazole 20 mg PO ACBRK 05/09/18 09:00 Sertraline [Zoloft] 100 mg PO DAILY - Plan Plan:: 72 yo female admitted with syncope and acute back pain. No events on telemetry. PT consulted and concerned about steps at home recommends observing again tonight.
[2018-05-09] MEDS: Metoprolol Succinate 100 MG Tab.ER PO SCH (20:08)
[2018-05-09] MEDS: Insulin Detemir 100 Units/ML 3 ML Pen SUBCUT SCH (21:30)
[2018-05-10] MEDS: Morphine 2 MG/ML Syringe IVPUSH PRN ×3 (04:49→20:47)
[2018-05-10] MEDS: Albuterol/Ipratropium 3.0-0.5 MG/3 ML Neb Soln NEB SCH ×4 (06:22→23:59)
[2018-05-10] MEDS: Omeprazole 20 MG Cap.CR PO SCH (06:30)
[2018-05-10] MEDS: Insulin Regular, Human 100 Units/ML 10 ML Vial SUBCUT SCH ×3 (07:40→17:24)
[2018-05-10] MEDS: Sertraline 100 MG Tab PO SCH (08:06)
[2018-05-10] MEDS: oxyCODONE 5 MG Tab PO PRN ×3 (08:06→23:59)
--- NOTE | 2018-05-10 09:13 | PCM.PN ---
- General Info Date of Service: 05/10/18 - Review of Systems Systems Review Comment:: reports nausea, some improvement in back pain. - Patient Data Vitals - Most Recent: Last Vital Signs Temp 37.2 C 05/10/18 04:00 Pulse 90 05/10/18 04:00 Resp 20 05/10/18 04:00 BP 148/82 H 05/10/18 04:00 Pulse Ox 90 L 05/10/18 04:00 Weight - Most Recent: 82.1 kg I&O - Last 24 Hours: Intake & Output 05/09/18 05/10/18 05/10/18 22:59 06:59 14:59 Intake Total 780 1000 Output Total 750 800 Balance 30 200 Lab Results Last 24 Hours: Laboratory Results - last 24 hr 05/09/18 05/09/18 05/09/18 Range/Units 12:09 16:40 21:28 POC Glucose 234 H 182 H 272 H (60-110) mg/dL 05/10/18 Range/Units 06:17 POC Glucose 285 H (60-110) mg/dL Med Orders - Current: Current Medications Acetaminophen (Tylenol) 650 mg PO Q4H PRN PRN Reason: Pain (Mild 1-3)/fever Albuterol/Ipratropium (Duoneb 3.0-0.5 Mg/3 Ml) 3 ml NEB Q6HRRT [facility] Last Admin: 05/10/18 06:22 Dose: 3 ml Cyclobenzaprine HCl (Flexeril) 5 mg PO TID PRN PRN Reason: Muscle Spasm Last Admin: 05/09/18 20:14 Dose: 5 mg Sodium Chloride (Normal Saline) 500 mls @ 999 mls/hr IV STAT [facility] Last Admin: 05/08/18 14:09 Dose: 999 mls/hr Ibuprofen (Motrin) 400 mg PO Q6H PRN PRN Reason: Pain (mild 1-3) Insulin Detemir (Levemir) 10 unit SUBCUT BEDTIME [facility] Last Admin: 05/09/18 21:30 Dose: 10 units Insulin Human Regular (Novolin R) 0 unit SUBCUT TIDAC [facility] Last Admin: 05/10/18 07:40 Dose: 10 units Metoprolol Succinate (Toprol Xl) 100 mg PO BEDTIME [facility] Last Admin: 05/09/18 20:08 Dose: 100 mg Morphine Sulfate (Morphine) 2 mg IVPUSH Q3H PRN PRN Reason: Pain Last Admin: 05/10/18 04:49 Dose: 2 mg Omeprazole (Omeprazole) 20 mg PO ACBRK [facility] Last Admin: 05/10/18 06:30 Dose: 20 mg Oxycodone HCl (Oxycodone) 5 mg PO Q4H PRN PRN Reason: Pain (moderate 4-6) Last Admin: 05/10/18 08:06 Dose: 5 mg Dulaglutide [ (Trulicity] 1.5 Mg) 1.5 each SUBCUT Mo@0900 [facility] Sertraline HCl (Zoloft) 100 mg PO DAILY [facility] Last Admin: 05/10/18 08:06 Dose: 100 mg Discontinued Medications Hydrocodone Bitart/Acetaminophen ([place] 325-5 Mg) 1 tab PO ONETIME ONE Stop: 05/08/18 15:52 Last Admin: 05/08/18 16:28 Dose: 1 tab Albuterol/Ipratropium (Duoneb 3.0-0.5 Mg/3 Ml) 3 ml NEB ONETIME ONE Stop: 05/08/18 15:52 Last Admin: 05/08/18 16:15 Dose: 3 ml Azithromycin (Zithromax) 500 mg PO ONETIME ONE Stop: 05/08/18 17:23 Last Admin: 05/08/18 17:54 Dose: 500 mg Insulin Detemir (Levemir) 10 unit SUBCUT DAILY [facility] Insulin Human Regular (Novolin R) 0 unit SUBCUT TID [facility]; Protocol Ketorolac Tromethamine (Toradol) 30 mg IVPUSH ONETIME ONE Stop: 05/08/18 13:53 Last Admin: 05/08/18 14:10 Dose: 30 mg Metoprolol Succinate (Toprol Xl) 100 mg PO DAILY [facility] Morphine Sulfate (Morphine) 2 mg IVPUSH ONETIME ONE Stop: 05/08/18 17:23 Last Admin: 05/08/18 17:59 Dose: 2 mg Ondansetron HCl (Zofran) 4 mg IVPUSH ONETIME ONE Stop: 05/08/18 17:23 Last Admin: 05/08/18 17:56 Dose: 4 mg Orphenadrine Citrate (Norflex) 60 mg IM NOW STA Stop: 05/08/18 14:32 Last Admin: 05/08/18 14:36 Dose: 60 mg - Problem List Review Problem List Initiated/Reviewed/Updated: Yes - My Orders Last 24 Hours: My Active Orders 05/09/18 09:00 Sertraline [Zoloft] 100 mg PO DAILY 05/11/18 09:00 Patient's Own Medication [Ptom] 1.5 each SUBCUT Mo@0900 - Plan Plan:: 72 yo female admitted with syncope and acute back pain. No events on telemetry. She has had no events on telemetry. We will continue PT for back pain and to increase mobility. Anticipate discharge home tomorrow as her will be home to help.
[2018-05-10] MEDS: Cyclobenzaprine 5 MG Tab PO PRN (09:57)
[2018-05-10] MEDS: Azithromycin 500 MG in Sodium Chloride 0.9% 250 ML IV SCH (11:04)
[2018-05-10] MEDS: cefTRIAXone 1 GM in Sodium Chloride 0.9% 50 ML IV SCH (13:02)
[2018-05-10] MEDS: Metoprolol Succinate 100 MG Tab.ER PO SCH (20:46)
[2018-05-10] MEDS: Insulin Detemir 100 Units/ML 3 ML Pen SUBCUT SCH (20:55)
[2018-05-11] MEDS: Morphine 2 MG/ML Syringe IVPUSH PRN (03:22)
[2018-05-11] MEDS: Cyclobenzaprine 5 MG Tab PO PRN ×4 (06:21→21:51)
[2018-05-11] MEDS: Omeprazole 20 MG Cap.CR PO SCH (06:32)
[2018-05-11] MEDS: Albuterol/Ipratropium 3.0-0.5 MG/3 ML Neb Soln NEB SCH ×4 (07:16→23:27)
[2018-05-11] MEDS: Insulin Regular, Human 100 Units/ML 10 ML Vial SUBCUT SCH ×3 (07:33→17:38)
[2018-05-11] MEDS: oxyCODONE 5 MG Tab PO PRN ×3 (07:48→17:48)
--- NOTE | 2018-05-11 07:57 | PCM.DCSUM1 ---
Discharge Summary - Discharge Data Discharge Date: 05/11/18 Discharge Disposition: Home, Self-Care 01 Condition: Stable - Patient Summary/Data Consults: Consultations 05/08/18 20:30 PT Evaluation and Treatment [CONS] Routine Hospital Course: 72 yo female who presented following a fall in her bathroom following a syncopal event. Patient awoke with back pain. Her CT head, spine and x-ray lumbar were normal. Chest x-ray reported left lower lung infiltrates. She was admitted due to back pain causing poor mobility Patient was treated with Rocephin and azithromycin for possible pneumonia. PT was consulted regarding her back pain and she did make improvement. She was kept until her returned from work so that she could have the help she need at home. - Discharge Plan Prescriptions/Med Rec: oxyCODONE 5 mg PO Q6HR PRN #8 tablet PRN Reason: Pain (Moderate 4-6) Azithromycin 500 mg PO DAILY #5 tablet Cyclobenzaprine [Flexeril] 5 mg PO TID PRN #10 tablet PRN Reason: Muscle Spasm Ibuprofen 400 mg PO Q6H PRN #30 tablet PRN Reason: pain Home Medications: Home Meds Aspirin 81 mg PO ONETIME 01/24/16 [History] ClonazePAM [KlonoPIN] 0.5 mg PO QID PRN 01/24/16 [History] Insulin Detemir [Levemir] 10 unit SQ DAILY 01/24/16 [History] Metoprolol Succinate [Toprol XL 100mg] 100 mg PO DAILY 01/24/16 [History] Omeprazole 20 mg PO DAILY 01/24/16 [History] Sertraline HCl [Zoloft] 100 mg PO DAILY 01/24/16 [History] Dulaglutide [Trulicity] 1.5 mg SQ ASDIRECTED 05/05/18 [History] Zolpidem Tartrate [Ambien] 5 mg PO DAILY PRN 05/05/18 [History] Insulin Regular, Human [NovoLIN R] 0 unit SUBCUT TID 05/09/18 [History] Acetaminophen [Tylenol] 650 mg PO Q6HR PRN tablet 05/11/18 [Rx] Azithromycin 500 mg PO DAILY #5 tablet 05/11/18 [Rx] Cyclobenzaprine [Flexeril] 5 mg PO TID PRN #10 tablet 07/16/18 [Rx] Ibuprofen 400 mg PO Q6H PRN #30 tablet 05/11/18 [Rx] oxyCODONE 5 mg PO Q6HR PRN #8 tablet 05/11/18 [Rx] Patient Handouts: Syncope, [id number] Referrals: PCP,None [Primary Care Provider] - - Patient Data Vitals - Most Recent: Last Vital Signs Temp 36.7 C 05/11/18 04:00 Pulse 91 05/11/18 04:00 Resp 19 05/10/18 23:26 BP 121/76 05/11/18 04:00 Pulse Ox 96 05/11/18 04:00 Weight - Most Recent: 82.1 kg I&O - Last 24 hours: Intake & Output 05/10/18 05/11/18 05/11/18 22:59 06:59 14:59 Intake Total 790 700 Output Total 400 400 Balance 390 300 Lab Results - Last 24 hrs: Laboratory Results - last 24 hr 05/10/18 05/10/18 05/10/18 Range/Units 11:14 16:34 20:54 POC Glucose 256 H 237 H 232 H (60-110) mg/dL 05/11/18 Range/Units 06:09 POC Glucose 277 H (60-110) mg/dL Med Orders - Current: Current Medications Acetaminophen (Tylenol) 650 mg PO Q4H PRN PRN Reason: Pain (Mild 1-3)/fever Last Admin: 05/10/18 20:46 Dose: 650 mg Albuterol/Ipratropium (Duoneb 3.0-0.5 Mg/3 Ml) 3 ml NEB Q6HRRT [facility] Last Admin: 05/11/18 07:16 Dose: 3 ml Cyclobenzaprine HCl (Flexeril) 5 mg PO TID PRN PRN Reason: Muscle Spasm Last Admin: 05/11/18 06:21 Dose: 5 mg Sodium Chloride (Normal Saline) 500 mls @ 999 mls/hr IV STAT [facility] [place] Last Admin: 05/08/18 14:09 Dose: 999 mls/hr Azithromycin 500 mg/ Sodium (Chloride) 250 mls @ 250 mls/hr IV Q24H [facility] [place] Last Admin: 05/10/18 11:04 Dose: 250 mls/hr Ceftriaxone Sodium 1 gm/ (Sodium Chloride) 50 mls @ 100 mls/hr IV Q24H [facility] [place] Last Admin: 05/10/18 13:02 Dose: 100 mls/hr Ibuprofen (Motrin) 400 mg PO Q6H PRN PRN Reason: Pain (mild 1-3) Insulin Detemir (Levemir) 10 unit SUBCUT BEDTIME [facility] Last Admin: 05/10/18 20:55 Dose: 10 units Insulin Human Regular (Novolin R) 0 unit SUBCUT TIDAC [facility] Last Admin: 05/11/18 07:33 Dose: 10 units Metoprolol Succinate (Toprol Xl) 100 mg PO BEDTIME [facility] [place] Last Admin: 05/10/18 20:46 Dose: 100 mg Morphine Sulfate (Morphine) 2 mg IVPUSH Q3H PRN PRN Reason: Pain Last Admin: 05/11/18 03:22 Dose: 2 mg Omeprazole (Omeprazole) 20 mg PO ACBRK [facility] [place] Last Admin: 05/11/18 06:32 Dose: 20 mg Oxycodone HCl (Oxycodone) 5 mg PO Q4H PRN PRN Reason: Pain (moderate 4-6) Last Admin: 05/11/18 07:48 Dose: 5 mg Dulaglutide [ (Trulicity] 1.5 Mg) 1.5 each SUBCUT Mo@0900 [facility] [place] Sertraline HCl (Zoloft) 100 mg PO DAILY [facility] Last Admin: 05/10/18 08:06 Dose: 100 mg Discontinued Medications Hydrocodone Bitart/Acetaminophen ([place] 325-5 Mg) 1 tab PO ONETIME ONE Stop: 05/08/18 15:52 Last Admin: 05/08/18 16:28 Dose: 1 tab Albuterol/Ipratropium (Duoneb 3.0-0.5 Mg/3 Ml) 3 ml NEB ONETIME ONE Stop: 05/08/18 15:52 Last Admin: 05/08/18 16:15 Dose: 3 ml Azithromycin (Zithromax) 500 mg PO ONETIME ONE Stop: 05/08/18 17:23 Last Admin: 05/08/18 17:54 Dose: 500 mg Insulin Detemir (Levemir) 10 unit SUBCUT DAILY [facility] Insulin Human Regular (Novolin R) 0 unit SUBCUT TID [facility]; Protocol Ketorolac Tromethamine (Toradol) 30 mg IVPUSH ONETIME ONE Stop: 05/08/18 13:53 Last Admin: 05/08/18 14:10 Dose: 30 mg Metoprolol Succinate (Toprol Xl) 100 mg PO DAILY [facility] Morphine Sulfate (Morphine) 2 mg IVPUSH ONETIME ONE Stop: 05/08/18 17:23 Last Admin: 05/08/18 17:59 Dose: 2 mg Ondansetron HCl (Zofran) 4 mg IVPUSH ONETIME ONE Stop: 05/08/18 17:23 Last Admin: 05/08/18 17:56 Dose: 4 mg Orphenadrine Citrate (Norflex) 60 mg IM NOW STA Stop: 05/08/18 14:32 Last Admin: 05/08/18 14:36 Dose: 60 mg
[2018-05-11] MEDS ORDERED: Dulaglutide [Trulicity] 1.5 MG SUBCUT SCH (09:00)
[2018-05-11] MEDS: Sertraline 100 MG Tab PO SCH (09:27)
[2018-05-11] MEDS: Azithromycin 500 MG in Sodium Chloride 0.9% 250 ML IV SCH (10:50)
--- NOTE | 2018-05-11 11:26 | PCM.PN ---
- General Info Date of Service: 05/11/18 Admission Dx/Problem (Free Text): Admission Diagnosis/Problem Admission Diagnosis/Problem Syncope Subjective Update: Hold off on discharge for today. Patient up with PT. Pain is worse when getting up, but is able to ambulate. Hypoxia on room air, especially when up ambulating. No chest pain or SOB. Is eager to get home, but pain is hindering her. Functional Status: Reports: Tolerating Diet, Ambulating, Urinating. Denies: Pain Controlled - Review of Systems General: Reports: No Symptoms. Denies: Fever, Chills HEENT: Reports: No Symptoms. Denies: Headaches, Sore Throat, Visual Changes Pulmonary: Reports: Shortness of Breath (intermittent). Denies: Cough, Sputum Cardiovascular: Reports: No Symptoms. Denies: Chest Pain, Palpitations, Edema Gastrointestinal: Reports: No Symptoms. Denies: Abdominal Pain, Nausea, Vomiting Genitourinary: Reports: No Symptoms. Denies: Dysuria, Frequency, Burning Musculoskeletal: Reports: Back Pain Neurological: Reports: No Symptoms Psychiatric: Reports: No Symptoms - Patient Data Vitals - Most Recent: Last Vital Signs Temp 98.3 F 05/11/18 07:55 Pulse 91 05/11/18 04:00 Resp 20 05/11/18 07:55 BP 147/83 H 05/11/18 07:55 Pulse Ox 93 L 05/11/18 07:55 Weight - Most Recent: 82.1 kg I&O - Last 24 Hours: Intake & Output 05/10/18 05/11/18 05/11/18 22:59 06:59 14:59 Intake Total 790 700 Output Total 400 400 Balance 390 300 Lab Results Last 24 Hours: Laboratory Results - last 24 hr 05/10/18 05/10/18 05/10/18 Range/Units 11:14 16:34 20:54 POC Glucose 256 H 237 H 232 H (60-110) mg/dL 05/11/18 Range/Units 06:09 POC Glucose 277 H (60-110) mg/dL Med Orders - Current: Current Medications Acetaminophen (Tylenol) 650 mg PO Q4H PRN PRN Reason: Pain (Mild 1-3)/fever Last Admin: 05/10/18 20:46 Dose: 650 mg Albuterol/Ipratropium (Duoneb 3.0-0.5 Mg/3 Ml) 3 ml NEB Q6HRRT [facility] Last Admin: 05/11/18 07:16 Dose: 3 ml Cyclobenzaprine HCl (Flexeril) 5 mg PO TID PRN PRN Reason: Muscle Spasm Last Admin: 05/11/18 06:21 Dose: 5 mg Sodium Chloride (Normal Saline) 500 mls @ 999 mls/hr IV STAT [facility] Last Admin: 05/08/18 14:09 Dose: 999 mls/hr Azithromycin 500 mg/ Sodium (Chloride) 250 mls @ 250 mls/hr IV Q24H [facility] Last Admin: 05/11/18 10:50 Dose: 250 mls/hr Ceftriaxone Sodium 1 gm/ (Sodium Chloride) 50 mls @ 100 mls/hr IV Q24H [facility] Last Admin: 05/10/18 13:02 Dose: 100 mls/hr Ibuprofen (Motrin) 400 mg PO Q6H PRN PRN Reason: Pain (mild 1-3) Insulin Detemir (Levemir) 10 unit SUBCUT BEDTIME [facility] Last Admin: 05/10/18 20:55 Dose: 10 units Insulin Human Regular (Novolin R) 0 unit SUBCUT TIDAC [facility] Last Admin: 05/11/18 07:33 Dose: 10 units Metoprolol Succinate (Toprol Xl) 100 mg PO BEDTIME [facility] Last Admin: 05/10/18 20:46 Dose: 100 mg Omeprazole (Omeprazole) 20 mg PO ACBRK [facility] Last Admin: 05/11/18 06:32 Dose: 20 mg Oxycodone HCl (Oxycodone) 5 mg PO Q4H PRN PRN Reason: Pain (moderate 4-6) Last Admin: 05/11/18 07:48 Dose: 5 mg Dulaglutide [ (Trulicity] 1.5 Mg) 1.5 each SUBCUT Mo@0900 [facility] Last Admin: 05/11/18 09:26 Dose: Not Given Sertraline HCl (Zoloft) 100 mg PO DAILY [facility] Last Admin: 05/11/18 09:27 Dose: 100 mg Discontinued Medications Hydrocodone Bitart/Acetaminophen ([place] 325-5 Mg) 1 tab PO ONETIME ONE Stop: 05/08/18 15:52 Last Admin: 05/08/18 16:28 Dose: 1 tab Albuterol/Ipratropium (Duoneb 3.0-0.5 Mg/3 Ml) 3 ml NEB ONETIME ONE Stop: 05/08/18 15:52 Last Admin: 05/08/18 16:15 Dose: 3 ml Azithromycin (Zithromax) 500 mg PO ONETIME ONE Stop: 05/08/18 17:23 Last Admin: 05/08/18 17:54 Dose: 500 mg Insulin Detemir (Levemir) 10 unit SUBCUT DAILY [facility] Insulin Human Regular (Novolin R) 0 unit SUBCUT TID [facility]; Protocol Ketorolac Tromethamine (Toradol) 30 mg IVPUSH ONETIME ONE Stop: 05/08/18 13:53 Last Admin: 05/08/18 14:10 Dose: 30 mg Metoprolol Succinate (Toprol Xl) 100 mg PO DAILY [facility] Morphine Sulfate (Morphine) 2 mg IVPUSH ONETIME ONE Stop: 05/08/18 17:23 Last Admin: 05/08/18 17:59 Dose: 2 mg Morphine Sulfate (Morphine) 2 mg IVPUSH Q3H PRN PRN Reason: Pain Last Admin: 05/11/18 03:22 Dose: 2 mg Ondansetron HCl (Zofran) 4 mg IVPUSH ONETIME ONE Stop: 05/08/18 17:23 Last Admin: 05/08/18 17:56 Dose: 4 mg Orphenadrine Citrate (Norflex) 60 mg IM NOW STA Stop: 05/08/18 14:32 Last Admin: 05/08/18 14:36 Dose: 60 mg - Exam Quality Assessment: Supplemental Oxygen, DVT Prophylaxis General: Alert, Oriented, Cooperative, No Acute Distress Lungs: Clear to Auscultation, Normal Respiratory Effort Cardiovascular: Regular Rate, Regular Rhythm GI/Abdominal Exam: Normal Bowel Sounds, Soft, Non-Tender Extremities: Normal Inspection, Normal Range of Motion Neurological: No New Focal Deficit Psy/Mental Status: Alert, Normal Affect, Normal Mood - Problem List & Annotations (1) Back pain SNOMED Code(s): 207487206 Code(s): M54.9 - DORSALGIA, UNSPECIFIED Status: Acute Current Visit: Yes Qualifiers: Back pain location: thoracic back pain Chronicity: acute Back pain laterality: midline Qualified Code(s): M54.6 - Pain in thoracic spine (2) Infiltrate of lung present on chest x-ray SNOMED Code(s): 152067530, 552921761 Code(s): R91.8 - OTHER NONSPECIFIC ABNORMAL FINDING OF LUNG FIELD Status: Acute Current Visit: Yes (3) Syncope SNOMED Code(s): 069335563 Code(s): R55 - SYNCOPE AND COLLAPSE Status: Acute Current Visit: Yes Qualifiers: Syncope type: unspecified Qualified Code(s): R55 - Syncope and collapse (4) HTN (hypertension) SNOMED Code(s): 93796657 Code(s): I10 - ESSENTIAL (PRIMARY) HYPERTENSION Status: Chronic Current Visit: Yes Qualifiers: Hypertension type: essential hypertension Qualified Code(s): I10 - Essential (primary) hypertension (5) DM type 2 (diabetes mellitus, type 2) SNOMED Code(s): 79993148 Code(s): E11.9 - TYPE 2 DIABETES MELLITUS WITHOUT COMPLICATIONS Status: Chronic Current Visit: Yes Qualifiers: Diabetes mellitus shelter insulin use: with manager intermediate use Diabetes mellitus complication status: without complication Qualified Code(s): E11.9 - Type 2 diabetes mellitus without complications; Z79.4 - manager intermediate (current) use of insulin (6) History of lobectomy of lung SNOMED Code(s): 791696257 Code(s): Z90.2 - ACQUIRED ABSENCE OF LUNG [PART OF] Status: Chronic Current Visit: Yes Annotation/Comment:: Left lower - Problem List Review Problem List Initiated/Reviewed/Updated: Yes - My Orders Last 24 Hours: My Active Orders 05/11/18 11:19 Patient Status [ADT] Routine - Plan Plan:: 72 yo female admitted with syncope and acute back pain. 1. Acute back pain: Slow improvement. Continue with PT. Continue with Motrin, Tylenol, and Flexeril. Attempt to limit narcotics if possible. Morphine discontinued, Oxycodone for severe pain. Up to chair for all meals and encourage ambulation. 2. Pneumonia: Continues to be hypoxic, especially with ambulation. Needing 3-4 L NC. Continue Rocephin and Azithromycin. Narcotics and Flexeril may be contributing to hypoxia. Monitor closely. Encourage IS. 3. Syncope: No events on telemetry. No further syncopal events. 4. HTN: Stable, continue Metoprolol XL 5. DM type 2: BS mid 200s, continue Levemir and Novolin R. Monitor VTE prophylaxis: Heparin Q12hr Dispo: Will make inpatient today due to continued need for pain medications, including narcotics, though attempting to wean as possible for discharge. She remains hypoxic at rest and with activity secondary to pneumonia.
[2018-05-11] MEDS: Ibuprofen 400 MG Tab PO PRN ×2 (11:37→17:47)
[2018-05-11] MEDS: cefTRIAXone 1 GM in Sodium Chloride 0.9% 50 ML IV SCH (12:52)
[2018-05-11] MEDS: Heparin Sodium 5,000 Units/ML Vial SUBCUT SCH (13:37)
[2018-05-11] MEDS: Insulin Detemir 100 Units/ML 3 ML Pen SUBCUT SCH (21:41)
[2018-05-11] MEDS: Metoprolol Succinate 100 MG Tab.ER PO SCH (21:41)
[2018-05-12] MEDS: Heparin Sodium 5,000 Units/ML Vial SUBCUT SCH ×2 (00:27→13:51)
[2018-05-12] MEDS: oxyCODONE 5 MG Tab PO PRN (02:13)
[2018-05-12 05:45] LABS: CHLORIDE,CL 98 mmol/L (98-107); SODIUM,NA 132 mmol/L (136-145)
[2018-05-12] MEDS: Omeprazole 20 MG Cap.CR PO SCH (06:30)
[2018-05-12] MEDS: Insulin Regular, Human 100 Units/ML 10 ML Vial SUBCUT SCH ×2 (07:17→13:51)
[2018-05-12] MEDS: Sertraline 100 MG Tab PO SCH (08:41)
[2018-05-12 08:49] VITALS: BP 115/61
[2018-05-12] MEDS: Albuterol/Ipratropium 3.0-0.5 MG/3 ML Neb Soln NEB SCH ×2 (08:50→13:50)
--- NOTE | 2018-05-12 09:20 | PCM.DCSUM1 ---
Discharge Summary - Hospital Course Brief History: 72 yo female with pmh of Dm type 2,lung ca in remission with L lower lobectomy who presented following a fall in her bathroom following a syncopal event. Patient awoke with back pain. Her CT head, spine and x-ray lumbar were normal. Chest x-ray reported left lower lung infiltrates. She was admitted due to back pain causing poor mobility Patient was treated with Rocephin and azithromycin for possible pneumonia. PT was consulted regarding her back pain and she did make improvement. She was kept until her returned from work so that she could have the help she need at home. Diagnosis: Stroke: No - Discharge Data Discharge Date: 05/12/18 Discharge Disposition: Home, Self-Care 01 Condition: Stable - Discharge Diagnosis/Problem(s) (1) Back pain SNOMED Code(s): 271442858 ICD Code: M54.9 - DORSALGIA, UNSPECIFIED Status: Acute Current Visit: Yes Qualifiers: Back pain location: thoracic back pain Chronicity: acute Back pain laterality: midline Qualified Code(s): M54.6 - Pain in thoracic spine (2) Infiltrate of lung present on chest x-ray SNOMED Code(s): 435987433, 060186698 ICD Code: R91.8 - OTHER NONSPECIFIC ABNORMAL FINDING OF LUNG FIELD Status: Acute Current Visit: Yes (3) Syncope SNOMED Code(s): 094404583 ICD Code: R55 - SYNCOPE AND COLLAPSE Status: Acute Current Visit: Yes Qualifiers: Syncope type: unspecified Qualified Code(s): R55 - Syncope and collapse (4) HTN (hypertension) SNOMED Code(s): 98056783 ICD Code: I10 - ESSENTIAL (PRIMARY) HYPERTENSION Status: Chronic Current Visit: Yes Qualifiers: Hypertension type: essential hypertension Qualified Code(s): I10 - Essential (primary) hypertension (5) DM type 2 (diabetes mellitus, type 2) SNOMED Code(s): 09335742 ICD Code: E11.9 - TYPE 2 DIABETES MELLITUS WITHOUT COMPLICATIONS Status: Chronic Current Visit: Yes Qualifiers: Diabetes mellitus penitentiary insulin use: with penitentiary use Diabetes mellitus complication status: without complication Qualified Code(s): E11.9 - Type 2 diabetes mellitus without complications; Z79.4 - USP (current) use of insulin (6) History of lobectomy of lung SNOMED Code(s): 123283508 ICD Code: Z90.2 - ACQUIRED ABSENCE OF LUNG [PART OF] Status: Chronic Current Visit: Yes Problem Details: Left lower - Patient Summary/Data Consults: Consultations 05/08/18 20:30 PT Evaluation and Treatment [CONS] Routine - Patient Instructions Diet: Diabetic Diet Activity: As Tolerated, No Lifting Over 10 Pounds, No Strenuous Activities Showering/Bathing: May Shower Notify Provider of: Fever, Increased Pain, Swelling and Redness, Drainage, Nausea and/or Vomiting - Discharge Plan *PRESCRIPTION DRUG MONITORING PROGRAM REVIEWED*: Not Applicable *COPY OF PRESCRIPTION DRUG MONITORING REPORT IN PATIENT MIKI: Not Applicable Prescriptions/Med Rec: oxyCODONE 5 mg PO Q6HR PRN #8 tablet PRN Reason: Pain (Moderate 4-6) Azithromycin 500 mg PO DAILY #5 tablet Cyclobenzaprine [Flexeril] 5 mg PO TID PRN #10 tablet PRN Reason: Muscle Spasm Ibuprofen 400 mg PO Q6H PRN #30 tablet PRN Reason: pain Home Medications: Home Meds Aspirin 81 mg PO ONETIME 01/24/16 [History] ClonazePAM [KlonoPIN] 0.5 mg PO QID PRN 01/24/16 [History] Insulin Detemir [Levemir] 10 unit SQ DAILY 01/24/16 [History] Metoprolol Succinate [Toprol XL 100mg] 100 mg PO DAILY 01/24/16 [History] Omeprazole 20 mg PO DAILY 01/24/16 [History] Sertraline HCl [Zoloft] 100 mg PO DAILY 01/24/16 [History] Dulaglutide [Trulicity] 1.5 mg SQ ASDIRECTED 05/05/18 [History] Zolpidem Tartrate [Ambien] 5 mg PO DAILY PRN 05/05/18 [History] Insulin Regular, Human [NovoLIN R] 0 unit SUBCUT TID 05/09/18 [History] Acetaminophen [Tylenol] 650 mg PO Q6HR PRN tablet 05/11/18 [Rx] Azithromycin 500 mg PO DAILY #5 tablet 05/11/18 [Rx] Cyclobenzaprine [Flexeril] 5 mg PO TID PRN #10 tablet 05/11/18 [Rx] Ibuprofen 400 mg PO Q6H PRN #30 tablet 05/11/18 [Rx] oxyCODONE 5 mg PO Q6HR PRN #8 tablet 05/11/18 [Rx] Patient Handouts: Cyclobenzaprine tablets, Oxycodone tablets or capsules, Ibuprofen tablets and capsules, Azithromycin tablets, Back Pain, Adult, Easy-to- Read, Syncope, [id number] - Discharge Summary/Plan Comment DC Time >30 min.: No Discharge Summary/Plan Comment: Discharge Diagnoses: Pneumonia Back pain -acute Syncopal event Hx lung ca with L lower lobectomy HTN Dm type 2 Kayce was admitted due to syncopal event and back pain secondary to this fall. She was monitored on telemetry, with no events or arrhythmias noted. She reports she was feeling dizzy and lightheaded and short of breath prior to falling. In the ED she was found to have infiltrate to the left lung base. She was started on Rocephin and Azithromycin. She was also treated for acute low back pain with Tylenol, NSAIDs, Flexeril and Oxycodone. She was noted to be hypoxic yesterday with activity, but also was taking quite a lot of narcotics for pain. Narcotics were cut back and focused more use of Tylenol and Ibuprofen along with Flexeril. Today she is sitting up at the edge of the bed resting discharge home. "I feel so much better, I can breath better." She was without oxygen at that time and noted to be 91% on RA. She did dip slightly to 88% with ambulation, but quickly returned to low 90s. She will not be in need of home oxygen. She will be going home today with small prescription for Oxycodone, instructed to use Tylenol and Ibuprofen for pain and Flexeril. She is to see PCP in 1 week for follow up. She is also considering home with Home health. She is in need of RN skilled assessment to monitor BS, oxygen and medications. She would also benefit from PT to assist with low back pain evaluation and treatment. Her PCP is Dr Shahnaz Herman in [facility], but has requested to be seen here in [place] since she recently moved here and does not want to travel down there for care. She is to return to the ED or clinic if concerns should arise. She also will have 5 more days of Azithromycin for pneumonia. - General Info Date of Service: 05/12/18 Admission Dx/Problem (Free Text: Admission Diagnosis/Problem Admission Diagnosis/Problem Syncope Subjective Update: Feeling much improved today and very adamant about going home. Pain is tolerable and she is doing much for her self. No chest pain. Dypsnea is much improved. She currently is on no oxygen and sating low 90s. Functional Status: Reports: Pain Controlled, Tolerating Diet, Ambulating, Urinating - Review of Systems General: Reports: No Symptoms. Denies: Fever, Fatigue, Malaise HEENT: Reports: No Symptoms. Denies: Headaches, Sore Throat, Rhinitis, Visual Changes Pulmonary: Reports: Cough (dry hacking, non productive.). Denies: Shortness of Breath, Sputum, Hemoptysis, Wheezing Cardiovascular: Reports: No Symptoms. Denies: Chest Pain, Palpitations, Edema Gastrointestinal: Reports: No Symptoms. Denies: Abdominal Pain, Nausea, Vomiting Genitourinary: Reports: No Symptoms. Denies: Dysuria Musculoskeletal: Reports: No Symptoms Skin: Reports: No Symptoms Neurological: Reports: No Symptoms Psychiatric: Reports: No Symptoms - Patient Data Vitals - Most Recent: Last Vital Signs Temp 96.3 F 05/12/18 08:00 Pulse 89 05/12/18 08:00 Resp 18 05/12/18 08:00 BP 115/61 05/12/18 08:00 Pulse Ox 91 L 05/12/18 08:29 Weight - Most Recent: 82.1 kg I&O - Last 24 hours: Intake & Output 05/11/18 05/12/18 05/12/18 22:59 06:59 14:59 Intake Total 660 1200 Output Total 580 500 Balance 80 700 Lab Results - Last 24 hrs: Laboratory Results - last 24 hr 05/11/18 05/11/18 05/11/18 Range/Units 13:13 16:37 21:03 WBC (4.0-11.0) K/uL RBC (4.30-5.90) M/uL Hgb (12.0-16.0) g/dL Hct (36.0-46.0) % MCV (80.0-98.0) fL MCH (27.0-32.0) pg MCHC (31.0-37.0) g/dL RDW Std Deviation (28.0-62.0) fl RDW Coeff of Onofre (11.0-15.0) % Plt Count (150-400) K/uL MPV (7.40-12.00) fL Neut % (Auto) (48.0-80.0) % Lymph % (Auto) (16.0-40.0) % [place] % (Auto) (0.0-15.0) % Eos % (Auto) (0.0-7.0) % Baso % (Auto) (0.0-1.5) % Neut # (Auto) (1.4-5.7) K/uL Lymph # (Auto) (0.6-2.4) K/uL [place] # (Auto) (0.0-0.8) K/uL Eos # (Auto) (0.0-0.7) K/uL Baso # (Auto) (0.0-0.1) K/uL Nucleated RBC % /100WBC Nucleated RBCs # K/uL Sodium (136-145) mmol/L Potassium (3.5-5.1) mmol/L Chloride (98-107) mmol/L Carbon Dioxide (21.0-32.0) mmol/L BUN (7.0-18.0) mg/dL Creatinine (0.6-1.0) mg/dL Est Cr Clr Drug Dosing mL/min Estimated GFR (MDRD) ml/min Glucose (74-106) mg/dL POC Glucose 256 H 227 H 266 H (60-110) mg/dL Calcium (8.5-10.1) mg/dL 05/12/18 05/12/18 05/12/18 Range/Units 05:00 05:00 06:26 WBC 5.41 (4.0-11.0) K/uL RBC 3.23 L (4.30-5.90) M/uL Hgb 11.0 L (12.0-16.0) g/dL Hct 31.2 L (36.0-46.0) % MCV 96.6 (80.0-98.0) fL MCH 34.1 H (27.0-32.0) pg MCHC 35.3 (31.0-37.0) g/dL RDW Std Deviation 42.6 (28.0-62.0) fl RDW Coeff of Onofre 12 (11.0-15.0) % Plt Count 210 (150-400) K/uL MPV 9.40 (7.40-12.00) fL Neut % (Auto) 73.9 (48.0-80.0) % Lymph % (Auto) 12.2 L (16.0-40.0) % [place] % (Auto) 10.2 (0.0-15.0) % Eos % (Auto) 3.5 (0.0-7.0) % Baso % (Auto) 0.2 (0.0-1.5) % Neut # (Auto) 4.0 (1.4-5.7) K/uL Lymph # (Auto) 0.7 (0.6-2.4) K/uL [place] # (Auto) 0.6 (0.0-0.8) K/uL Eos # (Auto) 0.2 (0.0-0.7) K/uL Baso # (Auto) 0.0 (0.0-0.1) K/uL Nucleated RBC % 0.0 /100WBC Nucleated RBCs # 0 K/uL Sodium 132 L (136-145) mmol/L Potassium 3.9 (3.5-5.1) mmol/L Chloride 98 (98-107) mmol/L Carbon Dioxide 24.8 (21.0-32.0) mmol/L BUN 17 (7.0-18.0) mg/dL Creatinine 0.9 (0.6-1.0) mg/dL Est Cr Clr Drug Dosing 51.59 mL/min Estimated GFR (MDRD) > 60.0 ml/min Glucose 255 H (74-106) mg/dL POC Glucose 234 H (60-110) mg/dL Calcium 9.2 (8.5-10.1) mg/dL Med Orders - Current: Current Medications Acetaminophen (Tylenol) 650 mg PO Q4H PRN PRN Reason: Pain (Mild 1-3)/fever Last Admin: 05/10/18 20:46 Dose: 650 mg Albuterol/Ipratropium (Duoneb 3.0-0.5 Mg/3 Ml) 3 ml NEB Q6HRRT [facility] Last Admin: 05/12/18 08:50 Dose: 3 ml Cyclobenzaprine HCl (Flexeril) 5 mg PO TID PRN PRN Reason: Muscle Spasm Last Admin: 05/11/18 21:51 Dose: 5 mg Heparin Sodium (Porcine) (Heparin Sodium) 5,000 units SUBCUT Q12H [facility] Last Admin: 05/12/18 00:27 Dose: 5,000 units Sodium Chloride (Normal Saline) 500 mls @ 999 mls/hr IV STAT [facility] Last Admin: 05/08/18 14:09 Dose: 999 mls/hr Azithromycin 500 mg/ Sodium (Chloride) 250 mls @ 250 mls/hr IV Q24H [facility] Last Admin: 05/11/18 10:50 Dose: 250 mls/hr Ceftriaxone Sodium 1 gm/ (Sodium Chloride) 50 mls @ 100 mls/hr IV Q24H [facility] Last Admin: 05/11/18 12:52 Dose: 100 mls/hr Ibuprofen (Motrin) 400 mg PO Q6H PRN PRN Reason: Pain (mild 1-3) Last Admin: 05/11/18 17:47 Dose: 400 mg Insulin Detemir (Levemir) 10 unit SUBCUT BEDTIME [facility] Last Admin: 05/11/18 21:41 Dose: 10 units Insulin Human Regular (Novolin R) 0 unit SUBCUT TIDAC [facility] Last Admin: 05/12/18 07:17 Dose: 5 units Metoprolol Succinate (Toprol Xl) 100 mg PO BEDTIME [facility] Last Admin: 05/11/18 21:41 Dose: 100 mg Omeprazole (Omeprazole) 20 mg PO ACBRK [facility] Last Admin: 05/12/18 06:30 Dose: 20 mg Oxycodone HCl (Oxycodone) 5 mg PO Q4H PRN PRN Reason: Pain (moderate 4-6) Last Admin: 05/12/18 02:13 Dose: 5 mg Dulaglutide [ (Trulicity] 1.5 Mg) 1.5 each SUBCUT Mo@0900 [facility] Last Admin: 05/11/18 09:26 Dose: Not Given Sertraline HCl (Zoloft) 100 mg PO DAILY [facility] Last Admin: 05/12/18 08:41 Dose: 100 mg Discontinued Medications Hydrocodone Bitart/Acetaminophen ([place] 325-5 Mg) 1 tab PO ONETIME ONE Stop: 05/08/18 15:52 Last Admin: 05/08/18 16:28 Dose: 1 tab Albuterol/Ipratropium (Duoneb 3.0-0.5 Mg/3 Ml) 3 ml NEB ONETIME ONE Stop: 05/08/18 15:52 Last Admin: 05/08/18 16:15 Dose: 3 ml Azithromycin (Zithromax) 500 mg PO ONETIME ONE Stop: 05/08/18 17:23 Last Admin: 05/08/18 17:54 Dose: 500 mg Insulin Detemir (Levemir) 10 unit SUBCUT DAILY [facility] Insulin Human Regular (Novolin R) 0 unit SUBCUT TID [facility]; Protocol Ketorolac Tromethamine (Toradol) 30 mg IVPUSH ONETIME ONE Stop: 05/08/18 13:53 Last Admin: 05/08/18 14:10 Dose: 30 mg Metoprolol Succinate (Toprol Xl) 100 mg PO DAILY [facility] Morphine Sulfate (Morphine) 2 mg IVPUSH ONETIME ONE Stop: 05/08/18 17:23 Last Admin: 05/08/18 17:59 Dose: 2 mg Morphine Sulfate (Morphine) 2 mg IVPUSH Q3H PRN PRN Reason: Pain Last Admin: 05/11/18 03:22 Dose: 2 mg Ondansetron HCl (Zofran) 4 mg IVPUSH ONETIME ONE Stop: 05/08/18 17:23 Last Admin: 05/08/18 17:56 Dose: 4 mg Orphenadrine Citrate (Norflex) 60 mg IM NOW STA Stop: 05/08/18 14:32 Last Admin: 05/08/18 14:36 Dose: 60 mg - Exam General: Reports: Alert, Oriented, Cooperative, No Acute Distress Neck: Reports: Supple Lungs: Reports: Clear to Auscultation, Normal Respiratory Effort Cardiovascular: Reports: Regular Rate, Regular Rhythm GI/Abdominal Exam: Normal Bowel Sounds, Soft, Non-Tender Back Exam: Reports: Normal Inspection. Denies: Full Range of Motion (limited by pain, but otherwise full range of motion.) Extremities: Normal Inspection, Normal Range of Motion, Non-Tender, No Pedal Edema Neurological: Reports: No New Focal Deficit Psy/Mental Status: Reports: Alert, Normal Affect, Normal Mood
[2018-05-12] MEDS: cefTRIAXone 1 GM in Sodium Chloride 0.9% 50 ML IV SCH (13:50)
[2018-05-12] MEDS: Azithromycin 500 MG in Sodium Chloride 0.9% 250 ML IV SCH (13:50)
== END 2018-05-12 11:40 | disposition home or self-care (01) | DRG 913 ==
LOC: MW.ED 13:44 → MW.MS 17:20 → OBSVTOIN 05-11 11:19
PROVIDERS: ADMIT Internal Medicine; ATTEND Internal Medicine
DX: S39.92XA Unspecified injury of lower back, initial encounter (principal); M54.5 Low back pain; J18.9 Pneumonia, unspecified organism; R55 Syncope and collapse; W18.39XA Other fall on same level, initial encounter; Y93.89 Activity, other specified; Y92.012 Bathroom of single-family (private) house as the place of occurrence of the external cause; E11.9 Type 2 diabetes mellitus without complications; R91.8 Other nonspecific abnormal finding of lung field; I10 Essential (primary) hypertension; K21.9 Gastro-esophageal reflux disease without esophagitis; Z79.899 Other long term (current) drug therapy; Z85.118 Personal history of other malignant neoplasm of bronchus and lung; Z90.2 Acquired absence of lung [part of]; Z79.4 Long term (current) use of insulin; Z79.82 Long term (current) use of aspirin; Z87.891 Personal history of nicotine dependence
CPT/HCPCS: 36415 ×2; 70450; 71045; 72100; 72125; 80048; 80053; 82962 ×10; 84484; 85025 ×2; 93005; 94640 ×7; 96361; 96365; 96367; 96372; 96375 ×2; 96376 ×4; 97161; 99285; A9270 ×27; G0378 ×3; J0456 ×2; J0696; J1815 ×2; J1885; J2270 ×10; J2360; J2405; J7040; J7050 ×3; 96374; 97530-GP; J1644

== ENCOUNTER 2018-05-14 09:40 | Emergency (ER) | payer MEDICARE, OTHER ==
[2018-05-14] MEDS ORDERED: Calcium Chloride 10% 1 GM/10 ML Syringe IV ONE (09:41)
[2018-05-14] MEDS ORDERED: 25% Dextrose in Water 10 ML Syringe IV ONE (09:41)
[2018-05-14] MEDS ORDERED: Atropine 0.1 MG/ML 10 ML Syringe IV ONE (09:41)
[2018-05-14] MEDS ORDERED: Etomidate 2 MG/ML 20 ML SDV IVPUSH ONE (09:41)
[2018-05-14] MEDS ORDERED: EPINEPHrine 1:10,000 1 MG/10 ML Syringe IV ONE (09:41)
[2018-05-14] MEDS ORDERED: fentaNYL 100 MCG/2 ML SDV IVPUSH ONE (09:44)
[2018-05-14] MEDS ORDERED: Furosemide 40 MG/4 ML VIAL IVPUSH ONE (09:44)
[2018-05-14] MEDS ORDERED: Nitroglycerin 2% Oint 1 GM UD Packet TOP ONE (09:44)
[2018-05-14] MEDS ORDERED: fentaNYL 100 MCG/2 ML SDV ONE (09:44)
[2018-05-14] MEDS ORDERED: Sodium Chloride 0.9% 1,000 ML IV SCH (09:45)
[2018-05-14] MEDS ORDERED: Nitroglycerin 2% Oint 1 GM UD Packet ONE (09:46)
[2018-05-14] MEDS ORDERED: Furosemide 40 MG/4 ML VIAL ONE (09:46)
[2018-05-14] MEDS ORDERED: Insulin Regular, Human 100 Units/ML 10 ML Vial ONE (09:46)
[2018-05-14] MEDS ORDERED: Insulin Regular, Human 100 Units/ML 10 ML Vial IVPUSH ONE ×2 (09:46→11:01)
[2018-05-14 09:54] VITALS: BP 111/66
--- NOTE | 2018-05-14 10:14 | CR ---
EXAMINATION: Portable chest radiograph. HISTORY: Shortness of breath. FINDINGS: The trachea is midline. Mild diffuse infiltration of the left hemithorax is noted. There is a small infiltrates overlying the right minor fissure also demonstrated. No significant pleural effusion or p neumothorax noted. The heart is normal in size. Osseous structures appear unremarkable. IMPRESSION: 1. Bilateral pulmonary opacities, correlate for pneumonia versus edema.
[2018-05-14] MEDS ORDERED: Levofloxacin/Dextrose 5%-Water 500 MG in Premix Bag 1 BAG IV ONE (10:20)
[2018-05-14] MEDS ORDERED: Diazepam 5 MG/ML 10 ML Vial MDV IV ONE (10:26)
[2018-05-14] MEDS ORDERED: HYDROmorphone 2 MG/ML SDV IM ONE (10:26)
[2018-05-14] MEDS ORDERED: LORazepam 2 MG/ML SDV ONE (10:30)
[2018-05-14] MEDS ORDERED: Ondansetron 4 MG/2 ML SDV ONE (10:31)
[2018-05-14] MEDS ORDERED: HYDROmorphone 1 MG/ML Syringe IVPUSH ONE (10:31)
[2018-05-14] MEDS ORDERED: Ondansetron 4 MG/2 ML SDV IVPUSH ONE (10:36)
[2018-05-14] MEDS ORDERED: LORazepam 2 MG/ML SDV IVPUSH ONE (10:36)
[2018-05-14] MEDS ORDERED: methylPREDNISolone Sodium Succinate 125 MG/2 ML SDV IVPUSH ONE (11:01)
[2018-05-14] MEDS ORDERED: Piperacillin/Tazobactam 3.375 GM in Sodium Chloride 0.9% 50 ML IV ONE (11:02)
--- NOTE | 2018-05-14 11:05 | EDM.PDOC ---
ED HPI GENERAL MEDICAL PROBLEM - General Chief Complaint: Respiratory Problem Stated Complaint: SOB Time Seen by Provider: 05/14/18 09:41 Source of Information: Reports: Patient History Limitations: Reports: No Limitations - History of Present Illness INITIAL COMMENTS - FREE TEXT/NARRATIVE: History of present illness: []Patient has non-small cell lung cancer with a left lobectomy in October of this year. She is status post radiation 3 weeks ago and had a syncopal event followed by a fall on May 08. She was admitted for pain control at that time, found to have a pneumonia and was treated with ceftriaxone and Zithromax. She was discharged hypoxic but sent out on home oxygen. Patient's states that she was not feeling well yesterday and awoke with shoulder pain early this morning but refused to come to the hospital. She had a rapid increase in difficulty breathing and her eventually called 911. She received one DuoNeb and 2 albuterol treatments, placed on a nonrebreather prior to arrival. She arrived hypoxic with O2 sats in the 80s and tachycardic complaining of back pain. Review of systems: As per history of present illness and below otherwise all systems reviewed and negative. Past medical history: As per history of present illness and as reviewed below otherwise noncontributory. Surgical history: As per history of present illness and as reviewed below otherwise noncontributory. Social history: No reported history of drug or alcohol abuse. Family history: As per history of present illness and as reviewed below otherwise noncontributory. Physical exam: General: Well developed, well nourished diaphoretic, tachypneic HEENT: Atraumatic, normocephalic, pupils reactive, negative for conjunctival pallor or scleral icterus, mucous membranes dry, throat clear, neck supple, nontender, trachea midline. Lungs: Clear to auscultation, breath sounds equal bilaterally, chest nontender. Heart: S1S2, regular, negative for clicks, rubs, or JVD. Abdomen: Soft, nondistended, nontender. Negative for masses or hepatosplenomegaly. Negative for costovertebral tenderness. Pelvis: Stable nontender. Genitourinary: Deferred. Rectal: Deferred. Extremities: Atraumatic, negative for cords or calf pain. Neurovascular unremarkable. Neuro: Awake. Exam nonfocal. Diagnostics: []Chest x-ray shows left interstitial edema, CBC was normal chemistry showed a glucose of 600, ABG showed hypoxia with a normal pH. Therapeutics: []Patient was given DuoNeb and 2 albuterol treatments prior to arrival, she is placed on BiPAP given Ativan, 55 g of fentanyl for her pain and 20 units of insulin Impression: []Cardiopulmonary arrest- ED Course: While in the ED patient showed worsening respiratory distress despite treatment became agonal. Her initially did not want her intubated and wanted her on comfort measures. She became more distressed he requested that she be intubated. Prior to intubation she coded, CPR was begun. She is found to be in PEA and bradycardic and was treated with epinephrine, bicarbonate, and atropine. She did not respond to any of these drugs. CPR was continued without response. was brought back into the room the code was called at 11:40 at this point labs results were coming back and showed a positive troponin and elevated BNP. I spoke to her daughter Julita and pastoral care was requested. Definitive disposition and diagnosis as appropriate pending reevaluation and review of above. Back Pain Score (Numeric/FACES): 8 - Related Data Allergies Allergy/AdvReac Type Severity Reaction Status Date / Time No Known Allergies Allergy Verified 05/14/18 09:46 Home Meds: Home Meds Aspirin 81 mg PO ONETIME 01/24/16 [History] ClonazePAM [KlonoPIN] 0.5 mg PO QID PRN 01/24/16 [History] Insulin Detemir [Levemir] 10 unit SQ DAILY 01/24/16 [History] Metoprolol Succinate [Toprol XL 100mg] 100 mg PO DAILY 01/24/16 [History] Omeprazole 20 mg PO DAILY 01/24/16 [History] Sertraline HCl [Zoloft] 100 mg PO DAILY 01/24/16 [History] Dulaglutide [Trulicity] 1.5 mg SQ ASDIRECTED 05/05/18 [History] Zolpidem Tartrate [Ambien] 5 mg PO DAILY PRN 05/05/18 [History] Insulin Regular, Human [NovoLIN R] 0 unit SUBCUT TID 05/09/18 [History] Acetaminophen [Tylenol] 650 mg PO Q6HR PRN tablet 05/11/18 [Rx] Cyclobenzaprine [Flexeril] 5 mg PO TID PRN #10 tablet 05/11/18 [Rx] Ibuprofen 400 mg PO Q6H PRN #30 tablet 05/11/18 [Rx] oxyCODONE 5 mg PO Q6HR PRN #8 tablet 05/11/18 [Rx] Past Medical History HEENT History: Reports: Sinusitis Cardiovascular History: Reports: Hypertension Respiratory History: Reports: None, Other (See Below) Other Respiratory History: pneumonia Gastrointestinal History: Reports: GERD Genitourinary History: Reports: None CRTS History: Reports: Musculoskeletal History: Reports: None Neurological History: Reports: None Psychiatric History: Reports: None Endocrine/Metabolic History: Reports: Diabetes, Type II Hematologic History: Reports: None Immunologic History: Reports: None Oncologic (Cancer) History: Reports: Squamous Cell Carcinoma Dermatologic History: Reports: None - Infectious Disease History Infectious Disease History: Reports: Chicken Pox, Measles, Mumps - Past Surgical History Female Surgical History: Reports: D&C, Hysterectomy, Salpingo-Oophorectomy Musculoskeletal Surgical History: Reports: Arthroscopic Knee, Other (See Below) Social & Family History - Family History Family Medical History: Noncontributory - Tobacco Use Smoking Status *Q: Never Smoker - Caffeine Use Caffeine Use: Reports: Coffee - Recreational Drug Use Recreational Drug Use: No ED ROS GENERAL - Review of Systems Review Of Systems: ROS reveals no pertinent complaints other than HPI. ED EXAM, GENERAL - Physical Exam Exam: See Below (See history of present illness) Course - Vital Signs Last Recorded V/S: Last Vital Signs Temp 98.1 F 05/14/18 09:52 Pulse 109 H 05/14/18 09:52 Resp BP 111/66 05/14/18 09:52 Pulse Ox 80 L 05/14/18 09:52 - Orders/Labs/Meds Orders: Active Orders 24 hr Category Date Time Status BIPAP [RT BiPAP/CPAP] [RC] ASDIRECTED Care 05/14/18 11:52 Active ABG [BLOOD GAS ARTERIAL] [BG] Stat Lab 05/14/18 11:52 Ordered CULTURE BLOOD [BC] Stat Lab 05/14/18 10:20 Ordered CULTURE BLOOD [BC] Stat Lab 05/14/18 10:20 Ordered Sodium Chloride 0.9% [Normal Saline] 1,000 ml Med 05/14/18 09:45 Active IV ASDIRECTED Blood Culture x2 Reflex Set [OM.PC] Stat Oth 05/14/18 10:20 Ordered Medication Orders Sodium Chloride (Normal Saline) 1,000 mls @ 125 mls/hr IV ASDIRECTED OLIVIA Last Admin: 05/14/18 09:55 Dose: 125 mls/hr Labs: Laboratory Tests 05/14/18 05/14/18 05/14/18 Range/Units 10:00 10:26 10:35 WBC (4.0-11.0) K/uL RBC (4.30-5.90) M/uL Hgb (12.0-16.0) g/dL Hct (36.0-46.0) % MCV (80.0-98.0) fL MCH (27.0-32.0) pg MCHC (31.0-37.0) g/dL RDW Std Deviation (28.0-62.0) fl RDW Coeff of Onofre (11.0-15.0) % Plt Count (150-400) K/uL MPV (7.40-12.00) fL Add Manual Diff Neutrophils % (Manual) (48.0-80.0) % Band Neutrophils % % Lymphocytes % (Manual) (16.0-40.0) % Monocytes % (Manual) (0.0-15.0) % Eosinophils % (Manual) (0.0-7.0) % Nucleated RBC % /100WBC Absolute Seg Neuts (1.4-5.7) Band Neutrophils # Lymphocytes # (Manual) (0.6-2.4) Monocytes # (Manual) (0.0-0.8) Eosinophils # (Manual) (0.0-0.7) Nucleated RBCs # K/uL ABG pH 7.378 (7.35-7.45) ABG pCO2 26 L (35-45) mmHG ABG pO2 57 L (75-100) mmHG ABG HCO3 16 L (22-26) mEq/L ABG Total CO2 14.1 ABG Base Excess -8.0 L (-2.0-2.0) Sodium 135 L (136-145) mmol/L Potassium 4.7 (3.5-5.1) mmol/L Chloride 99 (98-107) mmol/L Carbon Dioxide 17.5 L (21.0-32.0) mmol/L BUN 24 H (7.0-18.0) mg/dL Creatinine 1.4 H (0.6-1.0) mg/dL Est Cr Clr Drug Dosing TNP Estimated GFR (MDRD) 37.1 ml/min Glucose 601 H* (74-106) mg/dL POC Glucose > 500 H (60-110) mg/dL Calcium 9.4 (8.5-10.1) mg/dL Total Bilirubin 0.4 (0.2-1.0) mg/dL AST 72 H (15-37) IU/L ALT 50 (14-63) IU/L Alkaline Phosphatase 134 H (46-116) U/L Troponin I 0.191 H* (0.000-0.056) ng/mL B-Natriuretic Peptide (<100) PG/ML Total Protein 7.5 (6.4-8.2) g/dL Albumin 2.7 L (3.4-5.0) g/dL Globulin 4.8 H (2.0-3.5) g/dL Albumin/Globulin Ratio 0.6 L (1.3-2.8) 05/14/18 05/14/18 Range/Units 10:53 10:53 WBC 11.50 H (4.0-11.0) K/uL RBC 4.23 L (4.30-5.90) M/uL Hgb 14.4 (12.0-16.0) g/dL Hct 42.4 (36.0-46.0) % MCV 100.2 H (80.0-98.0) fL MCH 34.0 H (27.0-32.0) pg MCHC 34.0 (31.0-37.0) g/dL RDW Std Deviation 46.2 (28.0-62.0) fl RDW Coeff of Onofre 13 (11.0-15.0) % Plt Count 197 (150-400) K/uL MPV 10.10 (7.40-12.00) fL Add Manual Diff YES Neutrophils % (Manual) 87 H (48.0-80.0) % Band Neutrophils % 5 % Lymphocytes % (Manual) 3 L (16.0-40.0) % Monocytes % (Manual) 4 (0.0-15.0) % Eosinophils % (Manual) 1 (0.0-7.0) % Nucleated RBC % 0.0 /100WBC Absolute Seg Neuts 10.0 H (1.4-5.7) Band Neutrophils # 0.6 Lymphocytes # (Manual) 0.3 L (0.6-2.4) Monocytes # (Manual) 0.5 (0.0-0.8) Eosinophils # (Manual) 0.1 (0.0-0.7) Nucleated RBCs # 0 K/uL ABG pH (7.35-7.45) ABG pCO2 (35-45) mmHG ABG pO2 (75-100) mmHG ABG HCO3 (22-26) mEq/L ABG Total CO2 ABG Base Excess (-2.0-2.0) Sodium (136-145) mmol/L Potassium (3.5-5.1) mmol/L Chloride (98-107) mmol/L Carbon Dioxide (21.0-32.0) mmol/L BUN (7.0-18.0) mg/dL Creatinine (0.6-1.0) mg/dL Est Cr Clr Drug Dosing Estimated GFR (MDRD) ml/min Glucose (74-106) mg/dL POC Glucose (60-110) mg/dL Calcium (8.5-10.1) mg/dL Total Bilirubin (0.2-1.0) mg/dL AST (15-37) IU/L ALT (14-63) IU/L Alkaline Phosphatase (46-116) U/L Troponin I (0.000-0.056) ng/mL B-Natriuretic Peptide 1471 H (<100) PG/ML Total Protein (6.4-8.2) g/dL Albumin (3.4-5.0) g/dL Globulin (2.0-3.5) g/dL Albumin/Globulin Ratio (1.3-2.8) Meds: Medications Generic Name Dose Route Start Last Admin Trade Name Freq PRN Reason Stop Dose Admin Sodium Chloride 1,000 mls @ 125 mls/hr 05/14/18 09:45 05/14/18 09:55 Normal Saline IV 125 mls/hr ASDIRECTED OLIVIA Administration Discontinued Medications Generic Name Dose Route Start Last Admin Trade Name Freq PRN Reason Stop Dose Admin Diazepam 2.5 mg 05/14/18 10:26 05/14/18 10:43 Valium IV 05/14/18 10:27 2.5 mg ONETIME ONE Administration Fentanyl 50 mcg 05/14/18 09:44 05/14/18 09:53 Sublimaze IVPUSH 05/14/18 09:45 50 mcg ONETIME ONE Administration Fentanyl Confirm 05/14/18 09:44 05/14/18 09:56 Sublimaze Administered 05/14/18 09:45 Not Given Dose 100 mcg .ROUTE .STK-MED ONE Furosemide 20 mg 05/14/18 09:44 05/14/18 09:53 Lasix IVPUSH 05/14/18 09:45 20 mg NOW ONE Administration Furosemide Confirm 05/14/18 09:46 05/14/18 09:56 Lasix Administered 05/14/18 09:47 Not Given Dose 40 mg .ROUTE .STK-MED ONE Hydromorphone HCl 0.5 mg 05/14/18 10:26 05/14/18 10:50 Dilaudid IM 05/14/18 10:27 Not Given ONETIME ONE Hydromorphone HCl 1 mg 05/14/18 10:31 05/14/18 10:42 Dilaudid IVPUSH 05/14/18 10:32 1 mg ONETIME ONE Administration Levofloxacin/Dextrose 500 mg/ 100 mls @ 100 mls/hr 05/14/18 10:20 05/14/18 10 :52 Premix IV 05/14/18 11:19 100 mls/hr ONETIME ONE Administration Piperacillin Sod/Tazobactam 50 mls @ 100 mls/hr 05/14/18 11:02 Sod 3.375 gm/ Sodium Chloride IV 05/14/18 11:31 ONETIME ONE Vancomycin HCl 1 gm/ Sodium 250 mls @ 250 mls/hr 05/14/18 11:01 Chloride IV 05/14/18 12:00 ONETIME ONE Insulin Human Regular 10 unit 05/14/18 09:46 05/14/18 10:22 Novolin R IVPUSH 05/14/18 09:47 10 units ONETIME ONE Administration Protocol Insulin Human Regular Confirm 05/14/18 09:46 05/14/18 09:56 Novolin R Administered 05/14/18 09:47 Not Given Dose 1,000 unit .ROUTE .STK-MED ONE Insulin Human Regular 10 unit 05/14/18 11:01 Novolin R IVPUSH 05/14/18 11:02 ONETIME ONE Protocol Lorazepam Confirm 05/14/18 10:30 05/14/18 10:38 Ativan Administered 05/14/18 10:31 Not Given Dose 2 mg .ROUTE .STK-MED ONE Lorazepam 1 mg 05/14/18 10:36 05/14/18 10:38 Ativan IVPUSH 05/14/18 10:37 1 mg ONETIME ONE Administration Methylprednisolone Sodium Succinate 125 mg 05/14/18 11:01 Solu-Medrol IVPUSH 05/14/18 11:02 ONETIME ONE Nitroglycerin 0.5 gm 05/14/18 09:44 05/14/18 10:17 Nitro-Bid 2% TOP 05/14/18 09:45 0.5 gm ONETIME ONE Administration Nitroglycerin Confirm 05/14/18 09:46 05/14/18 09:56 Nitro-Bid 2% Administered 05/14/18 09:47 Not Given Dose 1 gm .ROUTE .STK-MED ONE Ondansetron HCl Confirm 05/14/18 10:31 05/14/18 10:38 Zofran Administered 05/14/18 10:32 Not Given Dose 4 mg .ROUTE .STK-MED ONE Ondansetron HCl 4 mg 05/14/18 10:36 05/14/18 10:38 Zofran IVPUSH 05/14/18 10:37 4 mg ONETIME ONE Administration Departure - Departure Time of Disposition: 12:52 Disposition: 20 Clinical Impression: Cardiopulmonary arrest - Discharge Information *PRESCRIPTION DRUG MONITORING PROGRAM REVIEWED*: Not Applicable Referrals: PCP,Unknown [Primary Care Provider] - Forms: ED Department Discharge - My Orders Last 24 Hours: My Active Orders 05/14/18 09:45 Sodium Chloride 0.9% [Normal Saline] 1,000 ml IV ASDIRECTED 05/14/18 10:20 CULTURE BLOOD [BC] Stat CULTURE BLOOD [BC] Stat Blood Culture x2 Reflex Set [OM.PC] Stat 05/14/18 11:52 BIPAP [RT BiPAP/CPAP] [RC] ASDIRECTED ABG [BLOOD GAS ARTERIAL] [BG] Stat - Assessment/Plan Last 24 Hours: My Active Orders 05/14/18 09:45 Sodium Chloride 0.9% [Normal Saline] 1,000 ml IV ASDIRECTED 05/14/18 10:20 CULTURE BLOOD [BC] Stat CULTURE BLOOD [BC] Stat Blood Culture x2 Reflex Set [OM.PC] Stat 05/14/18 11:52 BIPAP [RT BiPAP/CPAP] [RC] ASDIRECTED ABG [BLOOD GAS ARTERIAL] [BG] Stat
[2018-05-14 11:39] LABS: CHLORIDE,CL 99 mmol/L (98-107); SODIUM,NA 135 mmol/L (136-145)
--- NOTE | 2018-05-14 12:01 | CR ---
EXAMINATION: Portable chest radiograph. HISTORY: Post intubation. Comparison: Same day. FINDINGS: The trachea is midline. There is an endotracheal tube noted with tip into the right mainstem bronchus . This could be withdrawn approximately 2.5 cm. Persistent bilateral pulmonary opacities noted. Defib rillator pads noted. Osseous structures appear unremarkable. IMPRESSION: 1. Endotracheal tube noted with tip slightly in the right mainstem bronchus. This could be withdrawn approximately 2.5 cm. 2. Persistent pulmonary opacities.
[2018-05-14] MEDS ORDERED: EPINEPHrine 1 MG/1 ML Amp IVPUSH ONE ×2 (14:19→14:20)
[2018-05-14] MEDS ORDERED: Atropine 0.1 MG/ML 10 ML Syringe IVPUSH ONE (14:21)
[2018-05-14] MEDS ORDERED: Sodium Bicarbonate 8.4% 50 MEQ/50 ML Syringe IVPUSH ONE ×2 (14:26→14:27)
[2018-05-14] MEDS ORDERED: Calcium Chloride 10% 1 GM/10 ML Syringe IVPUSH ONE (14:41)
[2018-05-14] MEDS ORDERED: Sodium Chloride 0.9% 1,000 ML IV ONE (14:50)
== END 2018-05-14 14:00 | disposition expired ==
LOC: MW.ED 09:40
DX: I46.9 Cardiac arrest, cause unspecified (principal); I10 Essential (primary) hypertension; K21.9 Gastro-esophageal reflux disease without esophagitis; Z99.81 Dependence on supplemental oxygen; Z79.82 Long term (current) use of aspirin; Z79.899 Other long term (current) drug therapy
CPT/HCPCS: 36415; 36600; 71045; 80053; 82803; 82962; 83880; 84484; 85025; 92950; 94660; 96361; 96365; 96375; 99291; 99292; A9270; J0171; J0461; J1170; J1940; J1956; J2060; J2405; J3010; J3490; J7040